=== PATIENT | male | born 1955 | race Caucasian/White ===

== ENCOUNTER 2021-07-28 16:49 | Inpatient (IN) | payer OTHER, MEDICARE, BC, SELFPAY ==
--- NOTE | ~2021-07-28 | FL_ITS ---
EXAMINATION: XR FLUOROSCOPY WITH IMAGES CLINICAL INFORMATION: Choledocholithiasis. COMPARISON: CT scan of the abdomen and pelvis dated 07/28/2021. TECHNIQUE: Fluoroscopy performed by Dr. Ryder. Fluoroscopy time: 348.9 minutes DAP: 184.92 mGy Images: 6 FL/FL guidance in OR FINDINGS/IMPRESSION: Contrast fills the biliary tree with at least 2 filling defects seen on initial images, not seen on subsequent images. Please refer to the procedure report for more detailed findings.
--- NOTE | ~2021-07-28 | CT_ITS ---
EXAMINATION: CT ABDOMEN AND PELVIS WITH CONTRAST CLINICAL INFORMATION: Jaundice COMPARISON: None TECHNIQUE: Multidetector volumetric images were obtained from the superior aspect of the liver through the pubic symphysis following administration 85 mL of Omnipaque 350 intravenous contrast. Sagittal and coronal reformatted images were obtained on the technologist's workstation. Oral contrast: No This CT examination was performed using dose optimization techniques as appropriate, variously including the following: *Automated exposure control *Adjustment of mA and/or kV according to patient size (this includes techniques or standardized protocols for targeted exams where dose is matched to indication/reason for exam; i.e. extremities or head) *Use of iterative reconstruction technique DLP: 681 mGy-cm FINDINGS: LUNG BASES: The visualized lung bases are unremarkable. LIVER, GALLBLADDER, AND BILIARY TREE: The liver is normal in size, shape, and attenuation. There is mild intrahepatic biliary ductal dilatation with dilatation of the common bile duct with maximal dimension of 1.9 cm. In the distal duct, there are 2 obstructing presumed calculi seen the largest more distal measuring 1.0 x 0.8 x 1.2 cm. No stones are seen in the gallbladder. No other calculi are seen. No focal hepatic lesion. The gallbladder itself is unremarkable with no evidence of gallbladder wall thickening, or obvious pericholecystic inflammatory changes. PANCREAS: Unremarkable. SPLEEN: Unremarkable. ADRENAL GLANDS: Unremarkable. KIDNEYS AND URETERS: The kidneys are normal in size, shape, and attenuation. No hydronephrosis, hydroureter, or calculi seen. No perinephric stranding. BLADDER: Unremarkable. GASTROINTESTINAL TRACT: The small and large bowel are unremarkable. The appendix is unremarkable. ABDOMINAL WALL: No significant hernia is appreciated. LYMPH NODES: No retroperitoneal lymphadenopathy. VASCULAR: Atherosclerotic changes present in the infrarenal abdominal aorta and proximal common iliac arteries without aneurysm. PELVIC VISCERA: Unremarkable. OSSEOUS STRUCTURES: Unremarkable. CT/CT abdomen pelvis w con IMPRESSION: Choledocholithiasis with 2 stones in the distal common bile duct, the largest producing occlusion measuring 1.2 cm. Fleischner guidelines were followed.
[2021-07-28 17:05] VITALS: BP 137/75; PULSE 68; RESP 18; TEMP 36.9; O2SAT 98; BMI 32.5
[2021-07-28 17:22] LABS: MANUAL DIFF FLAG NO
[2021-07-28 17:23] LABS: Basophils Percent Auto 0.2 % (0-2); Eosinophils Percent Auto 0.2 % (0-4); Hematocrit 44.9 % (42.0-52.0); Imm Gran Abs Auto 0.03 X10*3/uL (0.00-0.03); Imm Gran Pct Auto 0.2 % (0.0-0.4); Lymphocytes Absolute Auto 0.7 X10*3/uL (1.2-4.9); Lymphocytes Percent Auto 5.5 % (20-40); Mean Corpuscular HGB Conc 35.6 g/dl (31.0-36.0); Mean Corpuscular Hemoglobin 32.7 pg (27.0-33.0); Mean Corpuscular Volume 91.8 fL (80.0-98.0); Mean Platelet Volume 9.7 fL (9.4-12.4); Monocytes Absolute Auto 0.9 X10*3/uL (0.1-1.2); Monocytes Percent Auto 7.6 % (2-11); Neutrophils Absolute Auto 10.7 x10*3/uL (2.0-8.3); Neutrophils Percent Auto 86.3 % (45-73); Platelet Count 268 X10*3/uL (160-400); Red Blood Count 4.89 X10*6/uL (4.60-5.80); Red Cell Distribution Width 12.8 % (11.0-16.0); White Blood Count 12.4 X10*3/uL (4.8-10.8)
[2021-07-28 17:45] LABS: Alanine Aminotransferase 274 U/L (0-40); Albumin Level 4.3 g/dL (3.5-5.0); Alkaline Phosphatase 244 U/L (39-117); Anion Gap 13 (12-20); Aspartate Amino Transferase 202 U/L (5-37); Bilirubin Total 9.1 mg/dL (0.0-1.0); Blood Urea Nitrogen 10 mg/dL (9-16); Calcium 9.8 mg/dL (8.4-10.2); Carbon Dioxide 27 mmol/L (22-29); Chloride 101 mmol/L (96-108); Creatinine Clr Calc Pharmacy 79.4; Estimated Glomerular Filt Rate > 60; Glucose Random 145 mg/dL (60-115); Potassium 4.8 mmol/L (3.3-5.1); Sodium 136 mmol/L (135-145); Total Protein 7.5 g/dL (6.5-8.0)
[2021-07-28 21:06] VITALS: BP 139/83; PULSE 68; RESP 18; O2SAT 98
--- NOTE | 2021-07-28 21:08 | PC.NURSE ---
pt states he has had flu like symptoms for one month followed by itchiness on and off for one week at a time. skin jaundice in color.
[2021-07-28 21:44] LABS: Appearance Urine CLEAR; Color Urine BROWN; Glucose Urine UA 100 MG/DL (NEG); Leukocyte Esterase Urine TRACE (NEG); Nitrite Urine POS (NEG); Specific Gravity - Urine >= 1.030 (1.005-1.025); UACC Culture Trigger YES; Urine Blood NEG (NEG); Urine Ketones 5 MG/DL (NEG); Urine Protein 3+ MG/DL (NEG-TRACE)
--- NOTE | 2021-07-28 21:52 | ED.ABDPAIN ---
HPI - Abdominal Pain General Chief Complaint: Abdominal Pain Stated Complaint: R/O hepatitis, nausea, vomit, ab. urine Time Seen by Provider: 07/28/21 21:37 Source: patient Mode of arrival: ambulatory History of Present Illness HPI narrative: 65-year-old male with cardiac disease, presents with complaints of symptoms starting at the end of June with a severe frontal headache that patient states was not associated with any focal symptoms such as speech/hearing/extremity numbness/tingling/weakness changes but states that it was followed by chills throughout his body and significant dry heaving. Patient states that he felt like his skin was crawling and he was scratching, denies any recent travel outside of the country, denies any unexplained weight loss and denies any abdominal pain/back pain/shortness of breath/chest pain/palpitations. In addition, he denies any diarrhea but states that he had noticed that his urine has progressively become darker and darker. Patient states that these symptoms lasted approximately 10 days then went away for 1 day and then he got another very bad headache with resumption of symptoms skin itching chills, and dry heaving. Patient reports a history of headaches for which he is treated with propanolol and says that this medication did help with the headache that he had been experiencing. He denies any recent medication dosage changes or any new medications. Related Data Home Medications Medication Instructions Recorded Confirmed amlodipine 10 mg tablet 1 tab PO DAILY 07/28/21 07/28/21 apixaban 5 mg tablet (Eliquis) 1 tab PO BID 07/28/21 07/28/21 aspirin 81 mg tablet,delayed 1 tab PO DAILY 07/28/21 07/28/21 release atorvastatin 80 mg tablet 1 tab PO DAILY 07/28/21 07/28/21 propranolol 80 mg capsule,24 1 cap PO BEDTIME 07/28/21 07/28/21 hr,extended release Allergies Allergy/AdvReac Type Severity Reaction Status Date / Time No Known Allergies Allergy Verified 07/28/21 17:06 Review of Systems Review of Systems Pertinent positives and negatives as stated in HPI 10 point review of systems otherwise negative. [facility] Past Medical History Source: nursing notes reviewed Social History Social History Alcohol intake: never Patient Tobacco Use Status: Never used Tobacco Use of substances other than those prescribed or required for medical reasons: No Advance Directives: No Advance Directives Information Provided: No Physical Exam ED Vital Signs: Vital Signs - 24 hr 07/28/21 17:05 07/28/21 21:06 07/28/21 22:00 Temperature 98.4 F 99.0 F Pulse Rate 68 68 70 Respiratory Rate 18 18 20 Blood Pressure 137/75 139/83 132/76 Pulse Oximetry 98 98 97 BMI result Body Mass Index 32.5 VITAL SIGNS: Reviewed. GENERAL: Well developed, well nourished, in no acute distress. HEAD: Normocephalic/atraumatic EYES: PERRLA, EOMI but scleral icterus noted EARS: Ext canals without abnormality OROPHARYNX: no oral lesions noted, posterior pharynx clear LUNGS: Normal breath sounds. No adventitious sounds or accessory muscle use. SpO2<98> CARDIOVASCULAR: Regular rate and rhythm without noted murmurs, no JVD or lower extremity edema. ABDOMEN: Elevated BMI, Soft, non-tender, non-distended with bowel sounds. MUSCULOSKELETAL: No tenderness, deformities, or effusions noted on gross inspection. EXTREMITIES: No cyanosis, clubbing or edema. SKIN: Inspection of the skin reveals no rashes, but jaundiced NEUROLOGIC: Alert and oriented x 4. Strength and sensation to light touch were grossly intact x 4. Course Course Course Narrative: 65-year-old male with history and clinical presentation concerning for possible medication reaction but felt to be more likely mass due to duration without abdominal pain, so choledocholithiasis/cholecystitis thought to be less likely and an absence of diarrhea as a component of the syndrome makes infectious hepatitis a less likely etiology. 2245: Suspect infection Review of all investigations and CT scan significant for choledocholithiasis. Reevaluation(s) Reevaluation #1: Paged GI Time: 22:46 Reevaluation #2: I discussed case with GI, Dr. Ryder, who will do the ERCP when patient has been off of Eliquis for 48 hours. Otherwise, agrees with current plan of care and patient will be admitted to the hospitalist service. Time: 23:08 MDM - Abdominal Pain Lab Data Result diagrams: 07/28/21 17:14 07/28/21 17:14 Labs: Lab Results 07/28/21 07/28/21 07/28/21 Range/Units 17:14 17:14 21:25 WBC 12.4 H (4.8-10.8) X10*3/uL RBC 4.89 (4.60-5.80) X10*6/uL Hgb 16.0 (14.0-18.0) g/dl Hct 44.9 (42.0-52.0) % MCV 91.8 (80.0-98.0) fL MCH 32.7 (27.0-33.0) pg MCHC 35.6 (31.0-36.0) g/dl RDW 12.8 (11.0-16.0) % Plt Count 268 (160-400) X10*3/uL MPV 9.7 (9.4-12.4) fL Immature Gran % (Auto) 0.2 (0.0-0.4) % Neut % (Auto) 86.3 H (45-73) % Lymph % (Auto) 5.5 L (20-40) % [place] % (Auto) 7.6 (2-11) % Eos % (Auto) 0.2 (0-4) % Baso % (Auto) 0.2 (0-2) % Lymph # (Auto) 0.7 L (1.2-4.9) X10*3/uL [place] # (Auto) 0.9 (0.1-1.2) X10*3/uL Eos # (Auto) 0.0 (0.0-0.4) X10*3/uL Baso # (Auto) 0.0 (0.0-0.2) X10*3/uL Abs Immat Gran (auto) 0.03 (0.00-0.03) X10*3/uL Absolute Neuts (auto) 10.7 H (2.0-8.3) x10*3/uL Absolute Nucleated RBC 0.000 (0.0-0.012) X10*3/uL Nucleated RBC % (auto) 0.0 (0.0-0.2) /100WBC Sodium 136 (135-145) mmol/L Potassium 4.8 (3.3-5.1) mmol/L Chloride 101 (96-108) mmol/L Carbon Dioxide 27 (22-29) mmol/L Anion Gap 13 (12-20) BUN 10 (9-16) mg/dL Creatinine 1.08 (0.5-1.4) mg/dL Estim Creat Clear Calc 79.4 Estimated GFR > 60 Random Glucose 145 H (60-115) mg/dL Calcium 9.8 (8.4-10.2) mg/dL Total Bilirubin 9.1 H (0.0-1.0) mg/dL AST 202 H (5-37) U/L ALT 274 H (0-40) U/L Alkaline Phosphatase 244 H (39-117) U/L Total Protein 7.5 (6.5-8.0) g/dL Albumin 4.3 (3.5-5.0) g/dL Lipase 22 (8-78) U/L Urine Color BROWN A Urine Appearance CLEAR Urine pH 5.0 (5.0-8.0) Ur Specific [place] >= 1.030 H (1.005-1.025) Urine Protein 3+ H (NEG-TRACE) MG/DL Urine Glucose (UA) 100 H (NEG) MG/DL Urine Ketones 5 (NEG) MG/DL Urine Blood NEG (NEG) Urine Nitrite POS H (NEG) Ur Leukocyte Esterase TRACE H (NEG) Urine RBC 0-2 (0) /HPF Urine WBC 1-4 (0-4) /HPF Ur Squamous Epith Cells 1+ /LPF Ur Renal Epithelial Cell TRACE /LPF Urine Bacteria TRACE /LPF Hyaline Casts 0-2 /LPF Urine Mucus TRACE /LPF ECG Data Attestation: I personally reviewed and interpreted this ECG as follows: Prior ECG tracings: not available for review Interpretation: NSR, HR-70, no STEMI, ME/QRS/QTC within normal limits. Critical Care Time Critical Care Time Critical Care Time: Yes Total Critical Care Time: 30 Attestation: I personally attest to this time spent taking care of the patient. Discharge Plan Discharge Clinical Impression: Choledocholithiasis, Sepsis Patient Disposition: Admitted As Inpatient Prescriptions: No Action atorvastatin 80 mg tablet 1 tab PO DAILY 0RF aspirin 81 mg tablet,delayed release (DR/EC) 1 tab PO DAILY 0RF amlodipine 10 mg tablet 1 tab PO DAILY 0RF propranolol 80 mg capsule,extended release 24 hr 1 cap PO BEDTIME 0RF Eliquis 5 mg tablet 1 tab PO BID 0RF
[2021-07-28] MEDS: iohexoL 350 MG/ML 100 ML INFUS..BTL IV (21:56)
[2021-07-28 22:00] VITALS: BP 132/76; PULSE 70; RESP 20; TEMP 37.2; O2SAT 97
[2021-07-28 22:15] LABS: Bacteria Urine TRACE /LPF; Hyaline Casts Urine 0-2 /LPF; Mucus Urine TRACE /LPF; RBC Urine 0-2 /HPF (0); Renal Epithelial Cells Urine TRACE /LPF; Squamous Epithelial Cell Urine 1+ /LPF
--- NOTE | 2021-07-28 22:29 | ECG_ITS ---
Test Reason : ABDOMINAL PAIN Blood Pressure : / mmHG Vent. Rate : 070 BPM Atrial Rate : 070 BPM P-R Int : 200 ms QRS Dur : 082 ms QT Int : 412 ms P-R-T Axes : 011 -33 001 degrees QTc Int : 444 ms Normal sinus rhythm Left axis deviation cannot exclude old Inferior infarct , age undetermined Abnormal ECG No previous ECGs available Referred By: Shannon Cantor Electronically Signed By:REJI MESA
[2021-07-28 22:36] LABS: Lipase 22 U/L (8-78)
[2021-07-28 23:29] VITALS: BP 108/57; PULSE 63; RESP 19; TEMP 36.8; O2SAT 97
[2021-07-28 23:35] LABS: Lactic Acid 1.5 mmol/L (0.5-2.0)
--- NOTE | 2021-07-28 23:36 | P.HPHOSP_ITS ---
History of Present Illness Date of Service: 07/28/21 Chief Complaint: dark urine 65-year-old male with a past medical history of hypertension, hyperlipidemia, AFib on Eliquis presented to the hospital with a chief complaint of dark urine for the past few days. Denies any abdominal pain. Patient does report having nausea. Denies any vomiting or diarrhea. Denies any fever chills cough. Denies any recent travel or sick contacts. Patient also reports he has been having generalized itching. Denies any recent changes in his medications. Review of all other systems is negative except mentioned above ER course: Per ER team patient noted a benign examination; urinalysis was abnormal consistent with UTI; also noted to have T bili of 9.1; ALT AST elevated to 200s; lipase negative; patient also had low-grade temperature 99 degrees F; given Zosyn; CT abdomen showed choledocholithiasis. Discussed with Dr. Ryder from Gastroenterology for possible ERCP and admitted to the hospitalist service for further management [facility] Medical History (Updated 08/10/21 @ 00:02 by Lan Hoffman) Atrial fibrillation Choledocholithiasis Hyperlipidemia Hypertension Jaundice Rotator cuff syndrome of both shoulders Sepsis Transaminitis UTI (urinary tract infection) Surgical History (Updated 08/08/21 @ 10:09 by MARY LOU Quarles) History of laparoscopic cholecystectomy (07/31/21) Status post total knee replacement, right Social History Household Members: Significant Other Housing: House Do you presently have visiting nurse or other home services: No Alcohol intake: never Patient Tobacco Use Status: Never used Tobacco service: Yes Current occupational status: retired Living Ind[employer] Groups Allergies Allergy/AdvReac Type Severity Reaction Status Date / Time No Known Allergies Allergy Verified 08/08/21 10:17 Active Medications: Current Medications Hydromorphone HCl (Hydromorphone Hcl 1 Mg/Ml Syringe) 0.5 mg IVPUSH Q4H PRN; Protocol PRN Reason: Pain, Severe (Pain Scale 7-10) Sodium Chloride (Ns) 2,121 mls @ 2,121 mls/hr IV .Q1H STA Stop: 07/29/21 00:11 Ondansetron HCl (Ondansetron Hcl 4 Mg/2 Ml Vial) 4 mg IVPUSH Q8H PRN PRN Reason: Nausea and Vomiting Sodium Chloride (0.9 % Sodium Chloride Flush 3 Ml Syringe) 3 ml IVFLUSH QSHIFT [facility] Home Medications Medication Instructions Recorded Confirmed Last Taken Type amlodipine 10 mg tablet 1 tab PO DAILY 07/28/21 08/08/21 Unknown History apixaban 5 mg tablet (Eliquis) 1 tab PO BID 07/28/21 08/08/21 Unknown History aspirin 81 mg tablet,delayed 1 tab PO DAILY 07/28/21 08/08/21 Unknown History release atorvastatin 80 mg tablet 1 tab PO DAILY 07/28/21 08/08/21 Unknown History propranolol 80 mg capsule,24 1 cap PO BEDTIME 07/28/21 08/08/21 Unknown History hr,extended release Physical Exam Vital Signs and Narrative: Vital Signs: Last Vital Signs Temp 98.2 F 07/28/21 23:29 Pulse 63 07/28/21 23:29 Resp 19 07/28/21 23:29 BP 108/57 L 07/28/21 23:29 Pulse Ox 97 07/28/21 23:29 BMI result Body Mass Index 32.5 Gen: Appears be in no acute distress HEENT: NCAT, Moist mucosa. Sclera are icteric Pulmonary: Vesicular breath sounds, fair air entry CVS: Normal S1-S2 Abdomen: BS+, Soft, Nontender Extremities: Warm well perfused Neuro: Alert and awake. Results Labs CBC and Chem 7: 08/02/21 05:19 08/02/21 05:19 Labs: Laboratory Results - last 24 hr 07/28/21 07/28/21 07/28/21 17:14 17:14 21:25 MCV 91.8 MCH 32.7 MCHC 35.6 RDW 12.8 Plt Count 268 MPV 9.7 Immature Gran % (Auto) 0.2 Neut % (Auto) 86.3 H Lymph % (Auto) 5.5 L [place] % (Auto) 7.6 Eos % (Auto) 0.2 Baso % (Auto) 0.2 Lymph # (Auto) 0.7 L [place] # (Auto) 0.9 Eos # (Auto) 0.0 Baso # (Auto) 0.0 Abs Immat Gran (auto) 0.03 Absolute Neuts (auto) 10.7 H Absolute Nucleated RBC 0.000 Nucleated RBC % (auto) 0.0 Anion Gap 13 Estim Creat Clear Calc 79.4 Estimated GFR > 60 Random Glucose 145 H Lactic Acid Calcium 9.8 Total Bilirubin 9.1 H AST 202 H ALT 274 H Alkaline Phosphatase 244 H Total Protein 7.5 Albumin 4.3 Lipase 22 Urine Color BROWN A Urine Appearance CLEAR Urine pH 5.0 Ur Specific [place] >= 1.030 H Urine Protein 3+ H Urine Glucose (UA) 100 H Urine Ketones 5 Urine Blood NEG Urine Nitrite POS H Ur Leukocyte Esterase TRACE H Urine RBC 0-2 Urine WBC 1-4 Ur Squamous Epith Cells 1+ Ur Renal Epithelial Cell TRACE Urine Bacteria TRACE Hyaline Casts 0-2 Urine Mucus TRACE 07/28/21 23:15 MCV MCH MCHC RDW Plt Count MPV Immature Gran % (Auto) Neut % (Auto) Lymph % (Auto) [place] % (Auto) Eos % (Auto) Baso % (Auto) Lymph # (Auto) [place] # (Auto) Eos # (Auto) Baso # (Auto) Abs Immat Gran (auto) Absolute Neuts (auto) Absolute Nucleated RBC Nucleated RBC % (auto) Anion Gap Estim Creat Clear Calc Estimated GFR Random Glucose Lactic Acid 1.5 Calcium Total Bilirubin AST ALT Alkaline Phosphatase Total Protein Albumin Lipase Urine Color Urine Appearance Urine pH Ur Specific [place] Urine Protein Urine Glucose (UA) Urine Ketones Urine Blood Urine Nitrite Ur Leukocyte Esterase Urine RBC Urine WBC Ur Squamous Epith Cells Ur Renal Epithelial Cell Urine Bacteria Hyaline Casts Urine Mucus Imaging Radiologist's Impressions: Impressions Abdomen/Pelvis CT 07/28/21 22:00 IMPRESSION: Choledocholithiasis with 2 stones in the distal common bile duct, the largest producing occlusion measuring 1.2 cm. Fleischner guidelines were followed. Assessment and Plan (1) Choledocholithiasis: (2) Transaminitis: (3) UTI (urinary tract infection): Plan 65-year-old male with a past medical history of hypertension, hyperlipidemia, AFib on Eliquis presented to the hospital with a chief complaint of dark urin e/icterus noted to have following Transaminitis/choledocholithiasis: Trend liver enzymes Avoid hepatotoxic medications Hold home statin Dr. Ryder was made aware-who recommended admission to Medicine Service for possible ERCP in the morning UTI: Patient had low-grade temperature. Follow up cultures. Currently on Zosyn. History of AFib: Rate controlled. Eliquis on hold for now in anticipation for procedure in the morning. History of hypertension: Patient's blood pressure currently on the soft side. Hold home amlodipine.Continue home propranolol with holding parameters DVT prophylaxis: SCD boots Code status: Full code Quality Stroke Does the patient have a stroke diagnosis?: No VTE Prior VTE?: No VTE Risk Level:: Medical - moderate - high VTE Device Contraindication: Treatment Not Indicated VTE Drug Contraindication: N/A - Med Ordered
[2021-07-28 23:41] LABS: COVID-19 Test Negative (Negative)
[2021-07-28 23:42] LABS: INTERNATIONAL NORM RATIO 1.7 (0.9-1.1); Prothrombin Time 19.9 SEC (9.9-13.0)
[2021-07-28] MEDS: 0.9 % Sodium Chloride 2,121 ML 2121 ML IV (23:46)
[2021-07-28] MEDS: Piperacillin Sodium/Tazobactam 3.375 GM in 0.9 % Sodium Chloride 50 ML IV (23:47)
[2021-07-29 02:00] VITALS: BP 123/65; PULSE 68; RESP 11; TEMP 36.8; O2SAT 98
[2021-07-29] MEDS: diphenhydrAMINE HCL 25 MG TABLET PO (02:33)
[2021-07-29] MEDS: Piperacillin Sodium/Tazobactam 3.375 GM in 0.9 % Sodium Chloride 50 ML IV ×3 (06:36→16:52)
[2021-07-29 06:41] LABS: MANUAL DIFF FLAG NO
[2021-07-29 06:54] LABS: Basophils Percent Auto 0.5 % (0-2); Eosinophils Absolute Auto 0.1 X10*3/uL (0.0-0.4); Eosinophils Percent Auto 2.1 % (0-4); Hematocrit 35.7 % (42.0-52.0); Hemoglobin 12.5 g/dl (14.0-18.0); Imm Gran Abs Auto 0.02 X10*3/uL (0.00-0.03); Imm Gran Pct Auto 0.3 % (0.0-0.4); Lymphocytes Absolute Auto 0.7 X10*3/uL (1.2-4.9); Lymphocytes Percent Auto 10.9 % (20-40); Mean Corpuscular Hemoglobin 32.6 pg (27.0-33.0); Mean Platelet Volume 10.3 fL (9.4-12.4); Monocytes Absolute Auto 0.6 X10*3/uL (0.1-1.2); Monocytes Percent Auto 8.6 % (2-11); Neutrophils Absolute Auto 5.1 x10*3/uL (2.0-8.3); Neutrophils Percent Auto 77.6 % (45-73); Platelet Count 181 X10*3/uL (160-400); Red Blood Count 3.84 X10*6/uL (4.60-5.80); White Blood Count 6.6 X10*3/uL (4.8-10.8)
[2021-07-29 07:04] LABS: Anion Gap 13 (12-20); Blood Urea Nitrogen 9 mg/dL (9-16); Calcium 8.6 mg/dL (8.4-10.2); Carbon Dioxide 21 mmol/L (22-29); Chloride 106 mmol/L (96-108); Creatinine Clr Calc Pharmacy 104.5; Estimated Glomerular Filt Rate > 60; Glucose Random 123 mg/dL (60-115); Potassium 3.9 mmol/L (3.3-5.1); Sodium 136 mmol/L (135-145)
[2021-07-29] MEDS: Atorvastatin Calcium 80 MG TABLET PO (07:44)
[2021-07-29 07:46] VITALS: BP 134/56; PULSE 81; RESP 14; O2SAT 98
[2021-07-29] MEDS: 0.9 % Sodium Chloride Flush 3 ML SYRINGE IVFLUSH ×3 (07:48→19:45)
[2021-07-29 07:59] LABS: Alanine Aminotransferase 173 U/L (0-40); Albumin Level 3.4 g/dL (3.5-5.0); Alkaline Phosphatase 183 U/L (39-117); Aspartate Amino Transferase 110 U/L (5-37); Bilirubin Direct 6.7 mg/dL (0.0-0.5); Bilirubin Total 8.6 mg/dL (0.0-1.0); Total Protein 5.7 g/dL (6.5-8.0)
--- NOTE | 2021-07-29 10:04 | PM.EVENT ---
Event Note Date of Service: 07/29/21 Event Note: GI consult dictated CBD stones with elevated lfts and 3 weeks of intermittent symptoms. Last dose of Eliquis 07/27PM Plan is for ERCP 07/30 after 48+ hrs off OAC to minimize risk of bleeding from sphincterotomy Pt is aware of risks and benefits and agrees to proceed.
--- NOTE | 2021-07-29 10:09 | MHC.SHP ---
Pre-Procedural Eval Section A Date of Service: 07/29/21 The patient is an INPATIENT: Yes Changes since office visit: No Cold of Flu in the past 2 weeks, No New Medical Problems, No Changes in Medication and No Patient answered all questions The History & Physical has been completed within 30 days and I have reviewed it.: Yes Section B Chief Complaint: Choledocholithiasis Allergies: Allergies Allergy/AdvReac Type Severity Reaction Status Date / Time No Known Allergies Allergy Verified 07/28/21 17:06 Plan I have reviewed the history and physical and performed a pertinent physical examination on my patient. No changes have occurred unless specified.
--- NOTE | 2021-07-29 13:15 | PC.NURSE ---
report given to s3
[2021-07-29 16:00] VITALS: BP 133/76; PULSE 62; RESP 19; TEMP 36.6; O2SAT 100
--- NOTE | 2021-07-29 16:08 | P.PNIM_ITS ---
Subjective Subjective Date of Service: 07/29/21 Interval History: F/u on choledocholithiasis--no more abdominal pain but having itchyness Review of Systems ithin, no abdominal pain Physical Exam Vital Signs: Vital Signs: Last Vital Signs Temp 98.3 F 07/29/21 02:00 Pulse 81 07/29/21 07:46 Resp 14 07/29/21 07:46 BP 134/56 L 07/29/21 07:46 Pulse Ox 98 07/29/21 07:46 BMI result Body Mass Index 32.5 Const: Other: General: AO X 3, no acute distress Sclera icteris Resp: CTA bilateral CVS: S1,S2,RRR GI: +BS, NT, no distention Skin: No rash Neuro: motor grossly intact Psych: appropriate affect Objective Data Active Medications Atorvastatin Calcium (Atorvastatin Calcium 80 Mg Tablet) 80 mg PO DAILY [facility] Last Admin: 07/29/21 07:44 Dose: 80 mg Documented by: ELAINE Hydromorphone HCl (Hydromorphone Hcl 1 Mg/Ml Syringe) 0.5 mg IVPUSH Q4H PRN; Protocol PRN Reason: Pain, Severe (Pain Scale 7-10) Piperacillin Sod/Tazobactam (Sod 3.375 gm/ Sodium Chloride) 50 mls @ 100 mls/hr IV Q6H [facility] Last Infusion: 07/29/21 13:46 Dose: 0 mls/hr Documented by: MARIIA Melatonin (Melatonin 3 Mg Tablet) 3 mg PO BEDTIME PRN PRN Reason: Insomnia Ondansetron HCl (Ondansetron Hcl 4 Mg/2 Ml Vial) 4 mg IVPUSH Q8H PRN PRN Reason: Nausea and Vomiting Propranolol HCl (Propranolol Hcl [place] 80 Mg Cap.Sa.24h) 80 mg PO BEDTIME FLAVIO; Protocol Sodium Chloride (0.9 % Sodium Chloride Flush 3 Ml Syringe) 3 ml IVFLUSH QSHIFT [facility] Last Admin: 07/29/21 07:48 Dose: 3 ml Documented by: ELAINE Labs CBC & Chem 7: 07/29/21 06:34 07/29/21 06:34 Labs: Laboratory Results - last 24 hr 07/28/21 07/28/21 07/28/21 17:14 17:14 21:25 MCV 91.8 MCH 32.7 MCHC 35.6 RDW 12.8 Plt Count 268 MPV 9.7 Immature Gran % (Auto) 0.2 Neut % (Auto) 86.3 H Lymph % (Auto) 5.5 L [place] % (Auto) 7.6 Eos % (Auto) 0.2 Baso % (Auto) 0.2 Lymph # (Auto) 0.7 L [place] # (Auto) 0.9 Eos # (Auto) 0.0 Baso # (Auto) 0.0 Abs Immat Gran (auto) 0.03 Absolute Neuts (auto) 10.7 H Absolute Nucleated RBC 0.000 Nucleated RBC % (auto) 0.0 PT INR Anion Gap 13 Estim Creat Clear Calc 79.4 Estimated GFR > 60 Random Glucose 145 H Lactic Acid Calcium 9.8 Total Bilirubin 9.1 H Direct Bilirubin AST 202 H ALT 274 H Alkaline Phosphatase 244 H Total Protein 7.5 Albumin 4.3 Lipase 22 Urine Color BROWN A Urine Appearance CLEAR Urine pH 5.0 Ur Specific [place] >= 1.030 H Urine Protein 3+ H Urine Glucose (UA) 100 H Urine Ketones 5 Urine Blood NEG Urine Nitrite POS H Ur Leukocyte Esterase TRACE H Urine RBC 0-2 Urine WBC 1-4 Ur Squamous Epith Cells 1+ Ur Renal Epithelial Cell TRACE Urine Bacteria TRACE Hyaline Casts 0-2 Urine Mucus TRACE COVID-19 (JEANETH) COVID-19 Spokeable Com 07/28/21 07/28/21 07/28/21 23:15 23:20 23:31 MCV MCH MCHC RDW Plt Count MPV Immature Gran % (Auto) Neut % (Auto) Lymph % (Auto) [place] % (Auto) Eos % (Auto) Baso % (Auto) Lymph # (Auto) [place] # (Auto) Eos # (Auto) Baso # (Auto) Abs Immat Gran (auto) Absolute Neuts (auto) Absolute Nucleated RBC Nucleated RBC % (auto) PT 19.9 H INR 1.7 H Anion Gap Estim Creat Clear Calc Estimated GFR Random Glucose Lactic Acid 1.5 Calcium Total Bilirubin Direct Bilirubin AST ALT Alkaline Phosphatase Total Protein Albumin Lipase Urine Color Urine Appearance Urine pH Ur Specific [place] Urine Protein Urine Glucose (UA) Urine Ketones Urine Blood Urine Nitrite Ur Leukocyte Esterase Urine RBC Urine WBC Ur Squamous Epith Cells Ur Renal Epithelial Cell Urine Bacteria Hyaline Casts Urine Mucus COVID-19 (JEANETH) Negative COVID-19 Clin Com See Note 07/29/21 07/29/21 06:34 06:34 MCV 93.0 MCH 32.6 MCHC 35.0 RDW 13.0 Plt Count 181 D MPV 10.3 Immature Gran % (Auto) 0.3 Neut % (Auto) 77.6 H Lymph % (Auto) 10.9 L [place] % (Auto) 8.6 Eos % (Auto) 2.1 Baso % (Auto) 0.5 Lymph # (Auto) 0.7 L [place] # (Auto) 0.6 Eos # (Auto) 0.1 Baso # (Auto) 0.0 Abs Immat Gran (auto) 0.02 Absolute Neuts (auto) 5.1 Absolute Nucleated RBC 0.000 Nucleated RBC % (auto) 0.0 PT INR Anion Gap 13 Estim Creat Clear Calc 104.5 Estimated GFR > 60 Random Glucose 123 H Lactic Acid Calcium 8.6 D Total Bilirubin 8.6 H Direct Bilirubin 6.7 H AST 110 H ALT 173 H Alkaline Phosphatase 183 H D Total Protein 5.7 L D Albumin 3.4 L D Lipase Urine Color Urine Appearance Urine pH Ur Specific [place] Urine Protein Urine Glucose (UA) Urine Ketones Urine Blood Urine Nitrite Ur Leukocyte Esterase Urine RBC Urine WBC Ur Squamous Epith Cells Ur Renal Epithelial Cell Urine Bacteria Hyaline Casts Urine Mucus COVID-19 (JEANETH) COVID-19 Clin Com Microbiology Microbiology Results: Microbiology 07/28/21 Unknown Urine Culture - Preliminary Urine clean catch - Urine serna top No growth to date. Assessment and Plan (1) Choledocholithiasis: Status: Acute Plan 65-year-old male with a past medical history of hypertension, hyperlipidemia, AFib on Eliquis presented to the hospital with a chief complaint of dark urine/icterus noted to have following Transaminitis/choledocholithiasis: Trend liver enzymes Avoid hepatotoxic medications Hold home statin Dr. Ryder will do ERCP tomorrow Will need surgery consult for eventual CCY UTI:??Patient had low-grade temperature.? Follow up cultures.? Currently on Zosyn History of AFib: Rate controlled.? Eliquis on hold for now in anticipation for procedure in the morning.? History of hypertension:? Patient's blood pressure currently on the soft side.? Hold home amlodipine.Continue home propranolol with holding parameters DVT prophylaxis: SCD boots Code status:? Full code Quality Stroke Does the patient have a stroke diagnosis?: No VTE Prior VTE?: No VTE Risk Level:: Medical - moderate - high VTE Device Contraindication: Treatment Not Indicated VTE Drug Contraindication: N/A - Med Ordered
[2021-07-29] MEDS: diphenhydrAMINE HCL 50 MG/ML VIAL 12.5 MG IVPUSH (16:52)
--- NOTE | 2021-07-29 19:23 | CONS_ITS ---
DATE OF SERVICE: 07/29/2021 REFERRING PHYSICIAN: Linden Kruger MD REASON FOR CONSULTATION: Common bile duct stones. HISTORY OF PRESENT ILLNESS: The patient is a pleasant 65-year-old man who was admitted to the hospital after presenting to the emergency room with complaints of intermittent abdominal pain with chills, dark in urine, and pruritus over the past 3 weeks. He had headache but denies fevers. He was evaluated in the emergency department with laboratory studies, and CT scanning was obtained after liver function tests were noted to be markedly elevated. The CT scan is reviewed, and this is interpreted as showing colon bile duct stones with common bile duct dilation. PAST MEDICAL HISTORY: 1. Migraine headaches. 2. Atrial fibrillation for which he is on Eliquis. 3. Coronary artery disease with history of stent placement. CURRENT MEDICATIONS: Current medication list is reviewed in the chart. ALLERGIES: THERE ARE NONE REPORTED. FAMILY HISTORY: This is reviewed with the patient and is noncontributory. SOCIAL HISTORY: There is no current tobacco, alcohol, or substance abuse. REVIEW OF SYSTEMS: SKIN: No pruritus. HEENT: Negative. CARDIOPULMONARY: No shortness of breath or chest pain. GASTROINTESTINAL: As above. GENITOURINARY: Negative. NEUROPSYCHIATRIC: Negative. PHYSICAL EXAMINATION: GENERAL: Shows a pleasant male, sitting comfortably in bed. VITAL SIGNS: Reviewed in electronic medical record and are stable. He has been afebrile since being started on antibiotics. SKIN: Shows mild icterus. HEENT: Shows mild scleral icterus. NECK: Without lymphadenopathy or thyromegaly. LUNGS: Clear. HEART: Shows regular rate and rhythm. S1, S2. No murmur. ABDOMEN: Soft. There is no tenderness, guarding, or rebound. Bowel sounds are present. No organomegaly is noted. EXTREMITIES: Without edema. LABORATORY DATA: Shows a white blood cell count of 6.6, down from 12.[address] scanning is reviewed. IMPRESSION: Common bile duct stones. I have discussed ERCP with sphincterotomy and stone extraction with the patient. This will be arranged for tomorrow so as to minimize risk from bleeding from sphincterotomy as his last dose of Eliquis was Thursday evening, and this will be 48 hours after that. I have discussed the procedure with him including risks and benefits. He understands these and agrees to proceed. I agree with keeping him on antibiotics to prevent cholangitis. His repeat chemistries have shown slight improvement in his bilirubin down from 9.1 to 8.6 with transaminases also improving to suggesting that his obstruction is intermittent. Thanks for asking me to see him. I will follow him in the hospital with you. MD TARA Aguero/SUNDAY / [phone]
[2021-07-29 19:25] VITALS: BP 134/72; PULSE 68; RESP 18; TEMP 36.8; O2SAT 97
[2021-07-29] MEDS: Propranolol HCL LA 80 MG CAP.SA.24H PO (19:44)
[2021-07-29] MEDS: Phytonadione (Vit K1) 10 MG in 0.9 % Sodium Chloride 50 ML 51 MG IV (19:44)
[2021-07-29 23:41] VITALS: BP 131/65; PULSE 57; RESP 16; TEMP 36.7; O2SAT 95
[2021-07-30] VITALS (14 sets, daily range): BP systolic 102–135; BP diastolic 51–80; PULSE 51–85; RESP 12–20; TEMP 36.2–37.1; O2SAT 95–99
[2021-07-30] MEDS: Piperacillin Sodium/Tazobactam 3.375 GM in 0.9 % Sodium Chloride 50 ML IV ×4 (00:43→16:28)
[2021-07-30 04:51] LABS: INTERNATIONAL NORM RATIO 1.2 (0.9-1.1); Prothrombin Time 13.5 SEC (9.9-13.0)
[2021-07-30 05:11] LABS: Anion Gap 12 (12-20); Blood Urea Nitrogen 8 mg/dL (9-16); Carbon Dioxide 23 mmol/L (22-29); Chloride 106 mmol/L (96-108); Creatinine Clr Calc Pharmacy 103.3; Estimated Glomerular Filt Rate > 60; Glucose Random 118 mg/dL (60-115); Sodium 137 mmol/L (135-145)
[2021-07-30] MEDS: 0.9 % Sodium Chloride Flush 3 ML SYRINGE IVFLUSH (07:49)
[2021-07-30] MEDS: Atorvastatin Calcium 80 MG TABLET PO (07:49)
[2021-07-30 08:24] LABS: Alanine Aminotransferase 139 U/L (0-40); Albumin Level 3.6 g/dL (3.5-5.0); Alkaline Phosphatase 182 U/L (39-117); Aspartate Amino Transferase 87 U/L (5-37); Bilirubin Direct 3.6 mg/dL (0.0-0.5); Total Protein 6.1 g/dL (6.5-8.0)
--- NOTE | 2021-07-30 09:36 | P.BOP_ITS ---
Brief Operative Note Date of Service: 07/30/21 Pre-op diagnosis: gerd,screening Post-op diagnosis: same (gastric and colon polyps) Procedure: EGD, colon Surgeon: Rupert Ryder Anesthesia: MAC Was an C 13 Catapult Operator used for this Procedure?: No Estimated blood loss (mL): 2 Pathology: other (bxs antrum, egj gastric polyps, colon polyps) Condition: stable Disposition: PACU
--- NOTE | 2021-07-30 09:50 | MHC.CM.PN ---
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 Home/no services is the goal for dc and CM has initiated and will follow for dc planning. Patient states that he is, in between PCPs. Patient has received the [employer]am[employer] vax X3.
--- NOTE | 2021-07-30 09:56 | P.PNIM_ITS ---
Subjective Subjective Date of Service: 07/30/21 Interval History: F/u on choledocholithiasis--no more abdominal pain but having itchyness Review of Systems ithin, no abdominal pain Physical Exam Vital Signs: Vital Signs: Last Vital Signs Temp 97.1 F 07/30/21 07:29 Pulse 52 07/30/21 07:29 Resp 18 07/30/21 07:29 BP 135/74 07/30/21 07:29 Pulse Ox 97 07/30/21 07:29 BMI result Body Mass Index 32.5 Const: Other: General: AO X 3, no acute distress Sclera icteris Resp: CTA bilateral CVS: S1,S2,RRR GI: +BS, NT, no distention Skin: No rash Neuro: motor grossly intact Psych: appropriate affect Objective Data Active Medications Atorvastatin Calcium (Atorvastatin Calcium 80 Mg Tablet) 80 mg PO DAILY [facility] Last Admin: 07/30/21 07:49 Dose: 80 mg Documented by: BROOKE Diphenhydramine HCl (Diphenhydramine Hcl 50 Mg/Ml Vial) 12.5 mg IVPUSH Q6H PRN PRN Reason: Itching Last Admin: 07/29/21 16:52 Dose: 12.5 mg Documented by: MARIIA Hydromorphone HCl (Hydromorphone Hcl 1 Mg/Ml Syringe) 0.5 mg IVPUSH Q4H PRN; Protocol PRN Reason: Pain, Severe (Pain Scale 7-10) Piperacillin Sod/Tazobactam (Sod 3.375 gm/ Sodium Chloride) 50 mls @ 100 mls/hr IV Q6H [facility] Last Infusion: 07/30/21 06:41 Dose: 0 mls/hr Documented by: TA Melatonin (Melatonin 3 Mg Tablet) 3 mg PO BEDTIME PRN PRN Reason: Insomnia Ondansetron HCl (Ondansetron Hcl 4 Mg/2 Ml Vial) 4 mg IVPUSH Q8H PRN PRN Reason: Nausea and Vomiting Propranolol HCl (Propranolol Hcl La 80 Mg Cap.Sa.24h) 80 mg PO BEDTIME [facility]; Protocol Last Admin: 07/29/21 19:44 Dose: 80 mg Documented by: TA Sodium Chloride (0.9 % Sodium Chloride Flush 3 Ml Syringe) 3 ml IVFLUSH QSHIFT [facility] Last Admin: 07/30/21 07:49 Dose: 3 ml Documented by: BROOKE Labs CBC & Chem 7: 07/29/21 06:34 07/30/21 04:32 Labs: Laboratory Results - last 24 hr 07/30/21 07/30/21 04:32 04:32 PT 13.5 H INR 1.2 H Anion Gap 12 Estim Creat Clear Calc 103.3 Estimated GFR > 60 Random Glucose 118 H Calcium 9.0 Total Bilirubin 5.0 H Direct Bilirubin 3.6 H AST 87 H ALT 139 H Alkaline Phosphatase 182 H Total Protein 6.1 L Albumin 3.6 Microbiology Microbiology Results: Microbiology 07/28/21 Unknown Urine Culture - Final Urine clean catch - Urine serna top No growth. 07/28/21 23:16 Blood Culture - Preliminary Blood - Venous No growth after 24 hours. 07/28/21 23:15 Blood Culture - Preliminary Blood - Venous No growth after 24 hours. Assessment and Plan (1) Choledocholithiasis: Status: Acute Plan 65-year-old male with a past medical history of hypertension, hyperlipidemia, AFib on Eliquis presented to the hospital with a chief complaint of dark urine/i cterus noted to have following Transaminitis/choledocholithiasis: Trend liver enzymes Avoid hepatotoxic medications Hold home statin Dr. Ryder will do ERCP today Will need surgery consult for eventual CCY, consult surgery UTI:??Culture negative, assymptomatic. Stop Zosyn after ERCP History of AFib: Rate controlled.? Eliquis on hold for now in anticipation for procedure in the morning.? History of hypertension:? Patient's blood pressure currently on the soft side.? Hold home amlodipine.Continue home propranolol with holding parameters DVT prophylaxis: SCD boots Code status:? Full code Quality Stroke Does the patient have a stroke diagnosis?: No VTE Prior VTE?: No VTE Risk Level:: Medical - moderate - high VTE Device Contraindication: Treatment Not Indicated VTE Drug Contraindication: N/A - Med Ordered
--- NOTE | 2021-07-30 12:06 | P.CONGS_ITS ---
History of Present Illness Consult details Consult date: 07/30/21 Reason for consult: abdominal pain Requesting physician: Linden Kruger Narrative: 65-year-old male patient presenting with complaints of abdominal pain the upper abdomen associated with dark colored urine and itchiness which progressed over the previous 3 weeks. He subsequently presented to the emergency department for further evaluation. He was noted to have markedly elevated bilirubin levels with a total bilirubin of 9.1 and elevated transaminases noted on admission. CT of the abdomen and pelvis revealed a normal-appearing liver with mild intrahepatic biliary dilatation and dilatation of the common bile duct up to 1.9 cm. To obstructing calculi are noted at the distal common bile duct measuring 1.0 x 0.8 x 1.2 cm. No stones are seen within the gallbladder. No gallbladder wall thickening or pericholecystic fluid is identified. GI consultation was obtained from Dr. Ryder and arrangements made for ERCP today. He was placed on IV antibiotics as well. Review of Systems Constitutional: Constitutional: Denies chills, Denies fever(s), Denies headac he(s) and Denies poor appetite ENT: Denies dizziness and Denies headache(s) Cardiovascular: Cardiovascular: Denies chest pain, Denies rapid heart rate, Denies palpitations and Denies slow heart rate Respiratory: Respiratory: Denies chest congestion, Denies cough, Denies pain on inspiration and Denies wheezing Gastrointestinal: Gastrointestinal: Reports abdominal pain, Denies bloating, Denies change in stool character, Denies constipation, Denies diarrhea, Denies nausea, Denies vomiting and Denies hematemesis Genitourinary: Comments: Dark urine Musculoskeletal: Musculoskeletal: Denies back pain, Denies arthralgias, Denies joint swelling and Denies numbness Integumentary/Breasts: Skin/Breast: Denies change in pigmentation, Denies erythema and Denies rash Neurologic: Denies dizziness, Denies headache(s) and Denies numbness Psychiatric: Psychiatric: Denies anxiety and Denies depression Endocrine: Endocrine: Denies palpitations Hematologic/Lymphatic: Hematologic/Lymphatic: Denies easy bleeding, Denies easy bruising and Denies lymphadenopathy Allergic/Immunologic: Allergic/Immunologic: Denies wheezing PMFSH Past Medical History Medical History (Updated 07/30/21 @ 12:38 by Ralph Puentes MD) Atrial fibrillation Hyperlipidemia Hypertension Rotator cuff syndrome of both shoulders Surgical History Surgical History (Updated 07/30/21 @ 12:31 by Ralph Puentes MD) Status post total knee replacement, right Social History Social History Household Members: Significant Other Housing: House Do you presently have visiting nurse or other home services: No Alcohol intake: never Patient Tobacco Use Status: Never used Tobacco Use of substances other than those prescribed or required for medical reasons: No Currently Displaying Signs/Symptoms of Drug Intoxication Withdrawal: No Advance Directives: No Advance Directives Information Provided: No Do you have thoughts of harming others: None Do you have a plan to hurt others: No Plan Recently lost weight without trying: No service: Yes Current occupational status: retired [employer] Allergies Allergy/AdvReac Type Severity Reaction Status Date / Time No Known Allergies Allergy Verified 07/28/21 17:06 Active Medications: Current Medications Atorvastatin Calcium (Atorvastatin Calcium 80 Mg Tablet) 80 mg PO DAILY [facility] Last Admin: 07/30/21 07:49 Dose: 80 mg Documented by: Diphenhydramine HCl (Diphenhydramine Hcl 50 Mg/Ml Vial) 12.5 mg IVPUSH Q6H PRN PRN Reason: Itching Last Admin: 07/29/21 16:52 Dose: 12.5 mg Documented by: Hydromorphone HCl (Hydromorphone Hcl 1 Mg/Ml Syringe) 0.5 mg IVPUSH Q4H PRN; Protocol PRN Reason: Pain, Severe (Pain Scale 7-10) Piperacillin Sod/Tazobactam (Sod 3.375 gm/ Sodium Chloride) 50 mls @ 100 mls/hr IV Q6H [facility] Last Admin: 07/30/21 11:42 Dose: 100 mls/hr Documented by: Melatonin (Melatonin 3 Mg Tablet) 3 mg PO BEDTIME PRN PRN Reason: Insomnia Ondansetron HCl (Ondansetron Hcl 4 Mg/2 Ml Vial) 4 mg IVPUSH Q8H PRN PRN Reason: Nausea and Vomiting Propranolol HCl (Propranolol Hcl La 80 Mg Cap.Sa.24h) 80 mg PO BEDTIME [facility]; Protocol Last Admin: 07/29/21 19:44 Dose: 80 mg Documented by: Sodium Chloride (0.9 % Sodium Chloride Flush 3 Ml Syringe) 3 ml IVFLUSH QSHIFT [facility] Last Admin: 07/30/21 07:49 Dose: 3 ml Documented by: Home Medications Medication Instructions Recorded Confirmed Last Taken Type amlodipine 10 mg tablet 1 tab PO DAILY 07/28/21 07/28/21 Unknown History apixaban 5 mg tablet (Eliquis) 1 tab PO BID 07/28/21 07/28/21 Unknown History aspirin 81 mg tablet,delayed 1 tab PO DAILY 07/28/21 07/28/21 Unknown History release atorvastatin 80 mg tablet 1 tab PO DAILY 07/28/21 07/28/21 Unknown History propranolol 80 mg capsule,24 1 cap PO BEDTIME 07/28/21 07/28/21 Unknown History hr,extended release Physical Exam Vital Signs: Vital Signs: Last Vital Signs Temp 97.1 F 07/30/21 11:37 Pulse 52 07/30/21 11:37 Resp 18 07/30/21 11:37 BP 121/69 07/30/21 11:37 Pulse Ox 98 07/30/21 11:37 BMI result Body Mass Index 32.5 Const: General: cooperative, comfortable and well developed Nutritional Appearance: well nourished and overweight Orientation/consciousness: patient oriented x3 Limitations: no limitations HENMT: Head: Yes normocephalic and Yes atraumatic Ears: hearing grossly normal bilaterally Eyes: Sclerae: scleral abnormal (Scleral icterus) EOM: EOMs intact bilaterally Neck: Neck: Yes normal visual inspection Resp: Effort & Inspection: normal respiratory effort, no cough, no respiratory distress and no stridor Cardio: Jugular venous distension: no JVD GI: Inspection: Yes normal to inspection Palpation (GI): Soft to palpation, Tenderness to palpation present (GI) in the epigastrum and at McBurney's point; Negative for Bell's sign negative and with no rebound tenderness, no guarding and not rigid Percussion: Yes normal to percussion Auscultation: normal bowel sounds Skin: General skin exam: dry skin and jaundice Neuro: General: patient oriented x3 and no focal motor deficits Extrem: General: Yes full ROM and Yes no clubbing, cyanosis or edema Psych: Appearance: grossly normal Results Labs Result diagrams: 07/29/21 06:34 07/30/21 04:32 Labs: Abnormal lab results 07/30/21 07/30/21 Range/Units 04:32 04:32 PT 13.5 H (9.9-13.0) SEC INR 1.2 H (0.9-1.1) BUN 8 L (9-16) mg/dL Random Glucose 118 H (60-115) mg/dL Total Bilirubin 5.0 H (0.0-1.0) mg/dL Direct Bilirubin 3.6 H (0.0-0.5) mg/dL AST 87 H (5-37) U/L ALT 139 H (0-40) U/L Alkaline Phosphatase 182 H (39-117) U/L Total Protein 6.1 L (6.5-8.0) g/dL BMP 07/30/21 04:32 Sodium 137 Potassium 4.0 Chloride 106 Carbon Dioxide 23 BUN 8 L Creatinine 0.83 Calcium 9.0 Liver Function 07/30/21 Range/Units 04:32 Total Bilirubin 5.0 H (0.0-1.0) mg/dL Direct Bilirubin 3.6 H (0.0-0.5) mg/dL AST 87 H (5-37) U/L ALT 139 H (0-40) U/L Alkaline Phosphatase 182 H (39-117) U/L Albumin 3.6 (3.5-5.0) g/dL Urine 07/28/21 Range/Units 21:25 Urine Color BROWN A Urine Appearance CLEAR Urine pH 5.0 (5.0-8.0) Ur Specific [place] >= 1.030 H (1.005-1.025) Urine Protein 3+ H (NEG-TRACE) MG/DL Urine Glucose (UA) 100 H (NEG) MG/DL All other labs normal. Assessment and Plan (1) Choledocholithiasis: Status: Acute (2) Jaundice: Status: Acute Plan 65-year-old male patient presenting with abdominal pain in the upper abdomen associated with jaundice and itchiness found to have common bile duct stones by CT of the abdomen and pelvis. Patient is scheduled for ERCP later today by Dr. Ryder. We discussed laparoscopic or possible open cholecystectomy possibly tomorrow and after discussion of the procedure, risks, and alternatives, he consents to the surgery. He will tentatively be added to the OR schedule for tomorrow afternoon pending the ERCP results. Procedures Date of Service Date of Service: 07/30/21
--- NOTE | 2021-07-30 12:18 | PM.CNGS ---
History of Present Illness Consult details Consult date: 07/30/21 Narrative: The patient is a 65-year-old male, who was admitted by the ER 2 nights ago because of abdominal pain, self described fever and chills. he also stated that this urine had been darker in color the past 2-3 weeks. His workup in the ER showed elevated LFTs. He had a CAT scan showing a dilated common bile duct consistent with CBD obstruction He was also noted have gallstones so he was admitted for likely CBD stones. I had actually seen him yesterday that time, he stated that he did not have pain any more. He was comfortable when seen. Review of Systems Constitutional: Constitutional: Reports chills and Reports fever(s) Cardiovascular: Cardiovascular: Denies chest pain, Denies dyspnea and Denies dyspnea on exertion Respiratory: Respiratory: Denies cough, Denies dyspnea and Denies dyspnea on exertion Gastrointestinal: Gastrointestinal: Denies hematochezia and Denies change in bowel habits Genitourinary: Genitourinary: Denies hematuria and Denies difficulty urinating Musculoskeletal: Musculoskeletal: Denies back pain and Denies limited range of motion Neurologic: Denies focal weakness and Denies convulsions Psychiatric: Psychiatric: Denies depression and Denies mood swings PMFSH Past Medical History Medical History Atrial fibrillation Hyperlipidemia Hypertension Social History Social History Household Members: Significant Other Housing: House Do you presently have visiting nurse or other home services: No Alcohol intake: never Patient Tobacco Use Status: Never used Tobacco Use of substances other than those prescribed or required for medical reasons: No Currently Displaying Signs/Symptoms of Drug Intoxication Withdrawal: No Advance Directives: No Advance Directives Information Provided: No Do you have thoughts of harming others: None Do you have a plan to hurt others: No Plan Recently lost weight without trying: No service: Yes Current occupational status: retired Meds Allergies Allergy/AdvReac Type Severity Reaction Status Date / Time No Known Allergies Allergy Verified 07/28/21 17:06 Active Medications: Current Medications Atorvastatin Calcium (Atorvastatin Calcium 80 Mg Tablet) 80 mg PO DAILY [facility] Last Admin: 07/30/21 07:49 Dose: 80 mg Documented by: Diphenhydramine HCl (Diphenhydramine Hcl 50 Mg/Ml Vial) 12.5 mg IVPUSH Q6H PRN PRN Reason: Itching Last Admin: 07/29/21 16:52 Dose: 12.5 mg Documented by: Hydromorphone HCl (Hydromorphone Hcl 1 Mg/Ml Syringe) 0.5 mg IVPUSH Q4H PRN; Protocol PRN Reason: Pain, Severe (Pain Scale 7-10) Piperacillin Sod/Tazobactam (Sod 3.375 gm/ Sodium Chloride) 50 mls @ 100 mls/hr IV Q6H [facility] Last Admin: 07/30/21 11:42 Dose: 100 mls/hr Documented by: Melatonin (Melatonin 3 Mg Tablet) 3 mg PO BEDTIME PRN PRN Reason: Insomnia Ondansetron HCl (Ondansetron Hcl 4 Mg/2 Ml Vial) 4 mg IVPUSH Q8H PRN PRN Reason: Nausea and Vomiting Propranolol HCl (Propranolol Hcl La 80 Mg Cap.Sa.24h) 80 mg PO BEDTIME [facility]; Protocol Last Admin: 07/29/21 19:44 Dose: 80 mg Documented by: Sodium Chloride (0.9 % Sodium Chloride Flush 3 Ml Syringe) 3 ml IVFLUSH QSHIFT [facility] Last Admin: 07/30/21 07:49 Dose: 3 ml Documented by: Home Medications Medication Instructions Recorded Confirmed Last Taken Type amlodipine 10 mg tablet 1 tab PO DAILY 07/28/21 07/28/21 Unknown History apixaban 5 mg tablet (Eliquis) 1 tab PO BID 07/28/21 07/28/21 Unknown History aspirin 81 mg tablet,delayed 1 tab PO DAILY 07/28/21 07/28/21 Unknown History release atorvastatin 80 mg tablet 1 tab PO DAILY 07/28/21 07/28/21 Unknown History propranolol 80 mg capsule,24 1 cap PO BEDTIME 07/28/21 07/28/21 Unknown History hr,extended release Physical Exam Vital Signs: Vital Signs: Last Vital Signs Temp 97.1 F 07/30/21 11:37 Pulse 52 07/30/21 11:37 Resp 18 07/30/21 11:37 BP 121/69 07/30/21 11:37 Pulse Ox 98 07/30/21 11:37 BMI result Body Mass Index 32.5 Const: General: comfortable and no acute distress Orientation/consciousness: patient oriented x3 Neck: Neck: Yes no lymphadenopathy Resp: Auscultation: clear to auscultation bilaterally Cardio: Rhythm: regular rhythm GI: Other: No Bell's sign Palpation (GI): Soft to palpation, nontender and no guarding Neuro: General: patient oriented x3 Results Labs Result diagrams: 07/29/21 06:34 07/30/21 04:32 Labs: Abnormal lab results 07/30/21 07/30/21 Range/Units 04:32 04:32 PT 13.5 H (9.9-13.0) SEC INR 1.2 H (0.9-1.1) BUN 8 L (9-16) mg/dL Random Glucose 118 H (60-115) mg/dL Total Bilirubin 5.0 H (0.0-1.0) mg/dL Direct Bilirubin 3.6 H (0.0-0.5) mg/dL AST 87 H (5-37) U/L ALT 139 H (0-40) U/L Alkaline Phosphatase 182 H (39-117) U/L Total Protein 6.1 L (6.5-8.0) g/dL BMP 07/30/21 04:32 Sodium 137 Potassium 4.0 Chloride 106 Carbon Dioxide 23 BUN 8 L Creatinine 0.83 Calcium 9.0 Liver Function 07/30/21 Range/Units 04:32 Total Bilirubin 5.0 H (0.0-1.0) mg/dL Direct Bilirubin 3.6 H (0.0-0.5) mg/dL AST 87 H (5-37) U/L ALT 139 H (0-40) U/L Alkaline Phosphatase 182 H (39-117) U/L Albumin 3.6 (3.5-5.0) g/dL Urine 07/28/21 Range/Units 21:25 Urine Color BROWN A Urine Appearance CLEAR Urine pH 5.0 (5.0-8.0) Ur Specific [place] >= 1.030 H (1.005-1.025) Urine Protein 3+ H (NEG-TRACE) MG/DL Urine Glucose (UA) 100 H (NEG) MG/DL All other labs normal. Imaging Abdomen CT scan report/results: report reviewed and image reviewed CT scan - pelvis: report reviewed and image reviewed Assessment and Plan (1) Choledocholithiasis: Status: Acute He was admitted for abdominal pain with dated LFTs along with a CT scan imaging showing suggestion of CBD obstruction likely from gallstones. He is to undergo ERCP today. His LFTs have been trending downwards. He actually is a lot more comfortable and denied any pain when seen earlier. We will see how the ERCP goes. In view of his gallstones, I will discuss him in the option of proceeding with laparoscopic cholecystectomy during this admission. He otherwise has a benign exam and does not appear septic.
[2021-07-30] MEDS: Lactated Ringers 1,000 ML 100 ML IVCONT ×2 (12:52→17:07)
--- NOTE | 2021-07-30 12:58 | P.CDIC_ITS ---
CDI Concurrent Query Documentation Clarification: PHYSICIAN'S DOCUMENTATION REQUEST Date of Query: 07/30/21 1259 Patient Name: Justin Bell Admit Date: 07/28/21 Dear Doctor, A review of the medical record indicates additional documentation may be needed. Please review below and update the documentation accordingly. Risk Factors/Clinical Indicators/Treatments WBC 12.4 LA 1.5 Per ED note: Sepsis IV Piperacillin Recognized standard criteria for this condition and other infectious definitions includes: Sepsis Systemic manifestations of infection, with 2 or more SIRS criteria which include: * Fever > 100.4?F or hypothermia < 96.8?F * Leukocytosis ? WBC > 12,000 or leukopenia, WBC < 4,000, or > 10% bands * Tachycardia- > 90 beats/minute * Tachypnea- RR > 20 breaths/minute or PaCO2 < 32mmHg Source: Merck Manual 2013 Documentation should include the known or suspected organism, and the underlying infection, such as UTI or pneumonia Based on the above information and the recognized standard for sepsis, could you please clarify in the Progress Notes if this diagnoses is still accurate and reflective of the patient's condition to ensure quality of the medical record. * Sepsis is/was present and is a clinical diagnosis (please include this additional support in the medical record) * After study (the condition) has been ruled out * Other (please specify) * Unable to determine Use of terms such as suspected, likely, concern for, or probable (associated with a specific diagnosis that is being evaluated, monitored, or treated as if it exists) are acceptable and can be coded in the inpatient setting, when documented at the time of discharge. Thank you, Bibi Logan RN Extension: [phone] Please use your independent medical judgment in providing your response. THIS QUERY IS PART OF THE PERMANENT MEDICAL RECORD
--- NOTE | 2021-07-30 13:27 | HO.ANESPROP2 ---
[facility] Active Problems Active Problems: All Active Problems (Updated 07/30/21 @ 12:38 by Ralph Puentes MD) Jaundice (Acute) On continuous oral anticoagulation (Acute) Atrial fibrillation (Acute) Hypertension (Acute) UTI (urinary tract infection) (Acute) Transaminitis (Acute) Choledocholithiasis (Acute) Sepsis (Acute) Past Medical History Medical History Atrial fibrillation Hyperlipidemia Hypertension Rotator cuff syndrome of both shoulders Functional capacity: independent ambulation Family History Family history of problems with anesthesia: No Surgical History Surgical History Status post total knee replacement, right History of Problems with Anesthesia: No Social History Social History Household Members: Significant Other Housing: House Do you presently have visiting nurse or other home services: No Alcohol intake: never Patient Tobacco Use Status: Never used Tobacco Use of substances other than those prescribed or required for medical reasons: No Currently Displaying Signs/Symptoms of Drug Intoxication Withdrawal: No Are you DNR?: No Advance Directives: No Advance Directives Information Provided: No Do you have thoughts of harming others: None Do you have a plan to hurt others: No Plan Recently lost weight without trying: No Nutrition Risks: No Nutritional Risk service: Yes Current occupational status: retired Meds Allergies Allergy/AdvReac Type Severity Reaction Status Date / Time No Known Allergies Allergy Verified 07/28/21 17:06 Active Medications: Current Medications Atorvastatin Calcium (Atorvastatin Calcium 80 Mg Tablet) 80 mg PO DAILY [facility] Last Admin: 07/30/21 07:49 Dose: 80 mg Documented by: Diphenhydramine HCl (Diphenhydramine Hcl 50 Mg/Ml Vial) 12.5 mg IVPUSH Q6H PRN PRN Reason: Itching Last Admin: 07/29/21 16:52 Dose: 12.5 mg Documented by: Hydromorphone HCl (Hydromorphone Hcl 1 Mg/Ml Syringe) 0.5 mg IVPUSH Q4H PRN; Protocol PRN Reason: Pain, Severe (Pain Scale 7-10) Piperacillin Sod/Tazobactam (Sod 3.375 gm/ Sodium Chloride) 50 mls @ 100 mls/hr IV Q6H [facility] Last Infusion: 07/30/21 12:22 Dose: Infused Documented by: Melatonin (Melatonin 3 Mg Tablet) 3 mg PO BEDTIME PRN PRN Reason: Insomnia Ondansetron HCl (Ondansetron Hcl 4 Mg/2 Ml Vial) 4 mg IVPUSH Q8H PRN PRN Reason: Nausea and Vomiting Propranolol HCl (Propranolol Hcl La 80 Mg Cap.Sa.24h) 80 mg PO BEDTIME [facility]; Protocol Last Admin: 07/29/21 19:44 Dose: 80 mg Documented by: Sodium Chloride (0.9 % Sodium Chloride Flush 3 Ml Syringe) 3 ml IVFLUSH QSHIFT [facility] Last Admin: 07/30/21 07:49 Dose: 3 ml Documented by: Home Medications Medication Instructions Recorded Confirmed Last Taken Type amlodipine 10 mg tablet 1 tab PO DAILY 07/28/21 07/28/21 Unknown History apixaban 5 mg tablet (Eliquis) 1 tab PO BID 07/28/21 07/28/21 Unknown History aspirin 81 mg tablet,delayed 1 tab PO DAILY 07/28/21 07/28/21 Unknown History release atorvastatin 80 mg tablet 1 tab PO DAILY 07/28/21 07/28/21 Unknown History propranolol 80 mg capsule,24 1 cap PO BEDTIME 07/28/21 07/28/21 Unknown History hr,extended release Exam Exam Date and Time: July 30, 2021 1327 Height,Weight and Vital Signs: Height 5 ft 9 in Weight 99.79 kg Last Vital Signs Temp 97.3 F 07/30/21 12:48 Pulse 52 07/30/21 12:48 Resp 16 07/30/21 12:48 BP 133/80 07/30/21 12:48 Pulse Ox 98 07/30/21 12:48 Pertinent Lab Results Pertinent Lab Results: Laboratory Tests 07/28/21 07/28/21 07/28/21 17:14 17:14 21:25 WBC 12.4 H RBC 4.89 Hgb 16.0 Hct 44.9 MCV 91.8 MCH 32.7 MCHC 35.6 RDW 12.8 Plt Count 268 MPV 9.7 Immature Gran % (Auto) 0.2 Neut % (Auto) 86.3 H Lymph % (Auto) 5.5 L [place] % (Auto) 7.6 Eos % (Auto) 0.2 Baso % (Auto) 0.2 Lymph # (Auto) 0.7 L [place] # (Auto) 0.9 Eos # (Auto) 0.0 Baso # (Auto) 0.0 Abs Immat Gran (auto) 0.03 Absolute Neuts (auto) 10.7 H Absolute Nucleated RBC 0.000 Nucleated RBC % (auto) 0.0 PT INR Sodium 136 Potassium 4.8 Chloride 101 Carbon Dioxide 27 Anion Gap 13 BUN 10 Creatinine 1.08 Estim Creat Clear Calc 79.4 Estimated GFR > 60 Random Glucose 145 H Lactic Acid Calcium 9.8 Total Bilirubin 9.1 H Direct Bilirubin AST 202 H ALT 274 H Alkaline Phosphatase 244 H Total Protein 7.5 Albumin 4.3 Lipase 22 Urine Color BROWN A Urine Appearance CLEAR Urine pH 5.0 Ur Specific [place] >= 1.030 H Urine Protein 3+ H Urine Glucose (UA) 100 H Urine Ketones 5 Urine Blood NEG Urine Nitrite POS H Ur Leukocyte Esterase TRACE H Urine RBC 0-2 Urine WBC 1-4 Ur Squamous Epith Cells 1+ Ur Renal Epithelial Cell TRACE Urine Bacteria TRACE Hyaline Casts 0-2 Urine Mucus TRACE COVID-19 (JEANETH) COVID-19 [employer] 07/28/21 07/28/21 07/28/21 23:15 23:20 23:31 WBC RBC Hgb Hct MCV MCH MCHC RDW Plt Count MPV Immature Gran % (Auto) Neut % (Auto) Lymph % (Auto) [place] % (Auto) Eos % (Auto) Baso % (Auto) Lymph # (Auto) [place] # (Auto) Eos # (Auto) Baso # (Auto) Abs Immat Gran (auto) Absolute Neuts (auto) Absolute Nucleated RBC Nucleated RBC % (auto) PT 19.9 H INR 1.7 H Sodium Potassium Chloride Carbon Dioxide Anion Gap BUN Creatinine Estim Creat Clear Calc Estimated GFR Random Glucose Lactic Acid 1.5 Calcium Total Bilirubin Direct Bilirubin AST ALT Alkaline Phosphatase Total Protein Albumin Lipase Urine Color Urine Appearance Urine pH Ur Specific [place] Urine Protein Urine Glucose (UA) Urine Ketones Urine Blood Urine Nitrite Ur Leukocyte Esterase Urine RBC Urine WBC Ur Squamous Epith Cells Ur Renal Epithelial Cell Urine Bacteria Hyaline Casts Urine Mucus COVID-19 (JEANETH) Negative COVID-19 [employer] Com See Note 07/29/21 07/29/21 07/30/21 06:34 06:34 04:32 WBC 6.6 RBC 3.84 L D Hgb 12.5 L D Hct 35.7 L D MCV 93.0 MCH 32.6 MCHC 35.0 RDW 13.0 Plt Count 181 D MPV 10.3 Immature Gran % (Auto) 0.3 Neut % (Auto) 77.6 H Lymph % (Auto) 10.9 L [place] % (Auto) 8.6 Eos % (Auto) 2.1 Baso % (Auto) 0.5 Lymph # (Auto) 0.7 L [place] # (Auto) 0.6 Eos # (Auto) 0.1 Baso # (Auto) 0.0 Abs Immat Gran (auto) 0.02 Absolute Neuts (auto) 5.1 Absolute Nucleated RBC 0.000 Nucleated RBC % (auto) 0.0 PT INR Sodium 136 137 Potassium 3.9 4.0 Chloride 106 106 Carbon Dioxide 21 L 23 Anion Gap 13 12 BUN 9 8 L Creatinine 0.82 0.83 Estim Creat Clear Calc 104.5 103.3 Estimated GFR > 60 > 60 Random Glucose 123 H 118 H Lactic Acid Calcium 8.6 D 9.0 Total Bilirubin 8.6 H 5.0 H Direct Bilirubin 6.7 H 3.6 H AST 110 H 87 H ALT 173 H 139 H Alkaline Phosphatase 183 H D 182 H Total Protein 5.7 L D 6.1 L Albumin 3.4 L D 3.6 Lipase Urine Color Urine Appearance Urine pH Ur Specific Armstrong Urine Protein Urine Glucose (UA) Urine Ketones Urine Blood Urine Nitrite Ur Leukocyte Esterase Urine RBC Urine WBC Ur Squamous Epith Cells Ur Renal Epithelial Cell Urine Bacteria Hyaline Casts Urine Mucus COVID-19 (JEANETH) COVID-19 Clin Com 07/30/21 04:32 WBC RBC Hgb Hct MCV MCH MCHC RDW Plt Count MPV Immature Gran % (Auto) Neut % (Auto) Lymph % (Auto) [place] % (Auto) Eos % (Auto) Baso % (Auto) Lymph # (Auto) [place] # (Auto) Eos # (Auto) Baso # (Auto) Abs Immat Gran (auto) Absolute Neuts (auto) Absolute Nucleated RBC Nucleated RBC % (auto) PT 13.5 H INR 1.2 H Sodium Potassium Chloride Carbon Dioxide Anion Gap BUN Creatinine Estim Creat Clear Calc Estimated GFR Random Glucose Lactic Acid Calcium Total Bilirubin Direct Bilirubin AST ALT Alkaline Phosphatase Total Protein Albumin Lipase Urine Color Urine Appearance Urine pH Ur Specific Armstrong Urine Protein Urine Glucose (UA) Urine Ketones Urine Blood Urine Nitrite Ur Leukocyte Esterase Urine RBC Urine WBC Ur Squamous Epith Cells Ur Renal Epithelial Cell Urine Bacteria Hyaline Casts Urine Mucus COVID-19 (JEANETH) COVID-19 Clin Com Airway Mallampati Class: III TM Dist: >3cm Neck ROM: Full Heart: RRR Lungs: Rosalina Assessment and Plan Final Anesthetic Review Family History of Problems with Anesthesia: No History of Problems with Anesthesia: No NPO: Yes ASA Class: III and Emergency Final Preanesthetic Review: No Changes in Pt Med Stat, Meds/Allgs Chart Reviewed and Consent Obtained/Reviewed Patient Risk: Intermediate Procedure Risk: Intermediate Anesthetic Plan Anesthetic Plan: GA Disposition: Standard PACU
--- NOTE | 2021-07-30 15:29 | PM.OP ---
Brief Operative Note Date of Service: 07/30/21 Pre-op diagnosis: cbd stones Post-op diagnosis: same Procedure: ERCP/sphincterotomy and stone extraction Surgeon: Rupert Ryder Anesthesia: GETA Was an Vascular Technician used for this Procedure?: No Estimated blood loss (mL): 2 Pathology: none sent Condition: stable
--- NOTE | 2021-07-30 15:31 | PM.EVENT ---
Event Note Date of Service: 07/30/21 Event Note: ERCP dictated 2 large cbd stones removed after sphincterotomy cystic duct appears patent good drainage of clear yellow bile post procedure rec lo fat diet tonight, then npo for ccy 07/31
--- NOTE | 2021-07-30 15:55 | OP_ITS ---
SURGEON: Rupert Ryder MD INDICATIONS: Common bile duct stones. PREOPERATIVE DIAGNOSIS: POSTOPERATIVE DIAGNOSIS: PROCEDURE PERFORMED: Endoscopic retrograde cholangiopancreatography with sphincterotomy and stone extraction. ESTIMATED BLOOD LOSS: COMPLICATIONS: ANESTHESIA: ASSISTANTS: SPECIMENS: MEDICATIONS: General anesthesia. DESCRIPTION OF PROCEDURE: History and physical were performed. The risks and benefits of the procedure were explained to the patient. An informed consent was obtained. The patient was placed in the prone position with a wedge under the right shoulder. The Olympus therapeutic duodenoscope was introduced into the esophagus, stomach, and duodenum. Examination was performed. The scope was removed. He tolerated the procedure well and was taken to recovery area in stable condition. FINDINGS: ENDOSCOPY: Limited examination. The esophagus, stomach, and duodenum were within normal limits. There was a small periampullary diverticulum. The major papilla appeared normal and drainage of clear yellow bile was noted from the papillary orifice. The bile duct was cannulated with a guidewire passed through a sphincterotome and injection of dye showed 2 filling defects consistent with the findings noted on CT scanning. The bile duct was dilated to approximately 9-10 mm. A sphincterotomy was performed to approximately 10 mm with no immediate complications. Next, multiple balloons up to 15 mm were used to extract 2 large common bile duct stones. Occlusion cholangiography at the termination of the procedure showed no further filling defects and there was excellent drainage of clear yellow bile. The cystic duct did appear to fill. Intrahepatic ducts appeared normal. No pancreatogram was attempted or obtained. IMPRESSION: Common bile duct stones. RECOMMENDATION: 1. Advanced diet. 2. Follow clinically. 3. Consideration to cholecystectomy for prevention of further common duct stone formation. MD TARA Aguero/SUNDAY / [phone]
[2021-07-30] MEDS: Propranolol HCL LA 80 MG CAP.SA.24H PO (20:09)
[2021-07-30] MEDS: diphenhydrAMINE HCL 50 MG/ML VIAL 12.5 MG IVPUSH (20:13)
[2021-07-31] VITALS (11 sets, daily range): BP systolic 104–173; BP diastolic 47–73; PULSE 50–57; RESP 14–18; TEMP 35.5–36.7; O2SAT 95–99
[2021-07-31] MEDS: 0.9 % Sodium Chloride Flush 3 ML SYRINGE IVFLUSH ×2 (00:05→19:47)
[2021-07-31 05:49] LABS: Hematocrit 36.3 % (42.0-52.0); Hemoglobin 12.6 g/dl (14.0-18.0); Mean Corpuscular HGB Conc 34.7 g/dl (31.0-36.0); Mean Corpuscular Hemoglobin 32.4 pg (27.0-33.0); Mean Corpuscular Volume 93.3 fL (80.0-98.0); Mean Platelet Volume 10.2 fL (9.4-12.4); Platelet Count 172 X10*3/uL (160-400); Red Blood Count 3.89 X10*6/uL (4.60-5.80); White Blood Count 5.4 X10*3/uL (4.8-10.8)
[2021-07-31] MEDS: Piperacillin Sodium/Tazobactam 3.375 GM in 0.9 % Sodium Chloride 50 ML IV ×5 (06:01→23:56)
--- NOTE | 2021-07-31 07:43 | HO.POSTANES ---
Post Anesthesia Evaluation Post Anesthesia Evaluation Vital Signs: Vital Signs Temp Pulse Resp BP Pulse Ox 07/31/21 07:38 96 F L 50 18 122/58 L 96 07/31/21 03:29 96.7 F L 50 16 133/57 L 96 07/30/21 23:45 97.1 F 55 16 116/59 L 97 Anesthesia: Monitored Mental Status: Awake Pain Control: Satisfactory Nausea/Vomiting: None Hydration: Adequate Anesthesia-Related Issues: No Anes. Related Issues
[2021-07-31] MEDS: Atorvastatin Calcium 80 MG TABLET PO (08:52)
[2021-07-31] MEDS: Throat Lozenge, Medicated LOZENGE 1 LOZENGE MUCOUS MEM ×2 (08:58)
--- NOTE | 2021-07-31 11:27 | HO.PM.IMPN ---
Subjective Subjective Date of Service: 07/31/21 Review of Systems F/u on choledocholithiasis No abdominal pain, nausea or vomiting Physical Exam Vital Signs: Vital Signs: Last Vital Signs Temp 97 F 07/31/21 11:01 Pulse 52 07/31/21 11:01 Resp 18 07/31/21 11:01 BP 117/54 L 07/31/21 11:01 Pulse Ox 98 07/31/21 11:01 BMI result Body Mass Index 32.5 Appearing in no acute distress lung sounds are clear to auscultation heart regular rate rhythm, clear S1, S2 positive bowel sounds, abdomen is soft, nontender neuro patient is alert x3, no focal deficits Objective Data Active Medications Atorvastatin Calcium (Atorvastatin Calcium 80 Mg Tablet) 80 mg PO DAILY [facility] Last Admin: 07/31/21 08:52 Dose: 80 mg Documented by: BROOKE Benzocaine (Throat Lozenge, Medicated Lozenge) 1 lozenge MUCOUS MEM Q2H PRN PRN Reason: Sore Throat Last Admin: 07/31/21 08:58 Dose: 1 lozenge Documented by: BROOKE Diphenhydramine HCl (Diphenhydramine Hcl 50 Mg/Ml Vial) 12.5 mg IVPUSH Q6H PRN PRN Reason: Itching Last Admin: 07/30/21 20:13 Dose: 12.5 mg Documented by: TA Fentanyl (Fentanyl Citrate/Pf 100 Mcg/2 Ml Vial) 25 mcg IVPUSH Q5M PRN; Protocol PRN Reason: Pain, Moderate (Pain Scale 4-6 Hydromorphone HCl (Hydromorphone Hcl 1 Mg/Ml Syringe) 0.5 mg IVPUSH Q4H PRN; Protocol PRN Reason: Pain, Severe (Pain Scale 7-10) Piperacillin Sod/Tazobactam (Sod 3.375 gm/ Sodium Chloride) 50 mls @ 100 mls/hr IV Q6H [facility] Last Admin: 07/31/21 11:26 Dose: 100 mls/hr Documented by: BROOKE Lactated Ringer's (Lr) 1,000 mls @ 100 mls/hr IVCONT .Q10H [facility] Last Admin: 07/31/21 11:26 Dose: Not Given Documented by: BROOKE Non-Admin Reason: IV Running Melatonin (Melatonin 3 Mg Tablet) 3 mg PO BEDTIME PRN PRN Reason: Insomnia Ondansetron HCl (Ondansetron Hcl 4 Mg/2 Ml Vial) 4 mg IVPUSH Q8H PRN PRN Reason: Nausea and Vomiting Ondansetron HCl (Ondansetron Hcl 4 Mg/2 Ml Vial) 4 mg IVPUSH ONCE PRN PRN Reason: Nausea and Vomiting Oxycodone HCl (Oxycodone Hcl Immed Release 5 Mg Tablet) 5 mg PO ONCE PRN PRN Reason: Pain, Severe (Pain Scale 7-10) Propranolol HCl (Propranolol Hcl La 80 Mg Cap.Sa.24h) 80 mg PO BEDTIME [facility]; Protocol Last Admin: 07/30/21 20:09 Dose: 80 mg Documented by: TA Sodium Chloride (0.9 % Sodium Chloride Flush 3 Ml Syringe) 3 ml IVFLUSH QSHIFT [facility] Last Admin: 07/31/21 08:51 Dose: Not Given Documented by: BROOKE Non-Admin Reason: IV Running Labs CBC & Chem 7: 07/31/21 05:18 07/30/21 04:32 Labs: Laboratory Results - last 24 hr 07/31/21 05:18 MCV 93.3 MCH 32.4 MCHC 34.7 RDW 13.0 Plt Count 172 MPV 10.2 Absolute Nucleated RBC 0.000 Nucleated RBC % (auto) 0.0 Microbiology Microbiology Results: Microbiology 07/28/21 23:16 Blood Culture - Preliminary Blood - Venous No growth after 48 hours. 07/28/21 23:15 Blood Culture - Preliminary Blood - Venous No growth after 48 hours. 07/28/21 Unknown Urine Culture - Final Urine clean catch - Urine serna top No growth. Assessment and Plan (1) Choledocholithiasis: Status: Acute Plan 65-year-old male with a past medical history of hypertension, hyperlipidemia, AFib on Eliquis presented to the hospital with a chief complaint of dark urine Transaminitis/choledocholithiasis LFTS trending down ERCP: 2 large cbd stones removed after sphincterotomy cystic duct appears patent, good drainage of clear yellow bile post procedure CCY today UTI Culture negative assymptomatic. Stop Zosyn History of AFib Rate controlled.? Eliquis on hold for now in anticipation for procedure in the morning.? History of hypertension Patient's blood pressure currently on the soft side.? Hold home amlodipine. Continue home propranolol with holding parameters DVT prophylaxis: SCD boots Code status:? Full code Attending Dr. Byers Quality Stroke Does the patient have a stroke diagnosis?: No VTE Prior VTE?: No VTE Risk Level:: Medical - moderate - high VTE Device Contraindication: Treatment Not Indicated VTE Drug Contraindication: N/A - Med Ordered
--- NOTE | 2021-07-31 11:38 | MHC.CM.PN ---
PER MD ROUNDS, PATIENT IS ANTICIPATED TO RETURN HOME TOMORROW (08/01/21) PLAN IS CURRENTLY NO SERVICES NEEDED.
--- NOTE | 2021-07-31 14:52 | HO.ANESPROP2 ---
HPI - Anesthesia Eval Consult details Narrative: 65 M for laproscopic cholecytectomy CAD s/p stent in 2018 Was on Eliquis and asprin , it is being held by the primary team for the procedure . [facility] Active Problems Active Problems: All Active Problems (Updated 07/30/21 @ 12:38 by Ralph Puentes MD) Jaundice (Acute) On continuous oral anticoagulation (Acute) Atrial fibrillation (Acute) Hypertension (Acute) UTI (urinary tract infection) (Acute) Transaminitis (Acute) Choledocholithiasis (Acute) Sepsis (Acute) Past Medical History Medical History Atrial fibrillation Hyperlipidemia Hypertension Rotator cuff syndrome of both shoulders Functional capacity: independent ambulation Family History Family history of problems with anesthesia: No Surgical History Surgical History Status post total knee replacement, right History of Problems with Anesthesia: No Social History Social History Household Members: Significant Other Housing: House Do you presently have visiting nurse or other home services: No Alcohol intake: never Patient Tobacco Use Status: Never used Tobacco service: Yes Current occupational status: retired [employer] Allergies Allergy/AdvReac Type Severity Reaction Status Date / Time No Known Allergies Allergy Verified 07/28/21 17:06 Active Medications: Current Medications Atorvastatin Calcium (Atorvastatin Calcium 80 Mg Tablet) 80 mg PO DAILY [facility] Last Admin: 07/31/21 08:52 Dose: 80 mg Documented by: Benzocaine (Throat Lozenge, Medicated Lozenge) 1 lozenge MUCOUS MEM Q2H PRN PRN Reason: Sore Throat Last Admin: 07/31/21 08:58 Dose: 1 lozenge Documented by: Diphenhydramine HCl (Diphenhydramine Hcl 50 Mg/Ml Vial) 12.5 mg IVPUSH Q6H PRN PRN Reason: Itching Last Admin: 07/30/21 20:13 Dose: 12.5 mg Documented by: Fentanyl (Fentanyl Citrate/Pf 100 Mcg/2 Ml Vial) 25 mcg IVPUSH Q5M PRN; Protocol PRN Reason: Pain, Moderate (Pain Scale 4-6 Hydromorphone HCl (Hydromorphone Hcl 1 Mg/Ml Syringe) 0.5 mg IVPUSH Q4H PRN; Protocol PRN Reason: Pain, Severe (Pain Scale 7-10) Piperacillin Sod/Tazobactam (Sod 3.375 gm/ Sodium Chloride) 50 mls @ 100 mls/hr IV Q6H [facility] Last Infusion: 07/31/21 12:05 Dose: Infused Documented by: Lactated Ringer's (Lr) 1,000 mls @ 100 mls/hr IVCONT .Q10H [facility] Last Admin: 07/31/21 11:26 Dose: Not Given Documented by: Melatonin (Melatonin 3 Mg Tablet) 3 mg PO BEDTIME PRN PRN Reason: Insomnia Ondansetron HCl (Ondansetron Hcl 4 Mg/2 Ml Vial) 4 mg IVPUSH Q8H PRN PRN Reason: Nausea and Vomiting Ondansetron HCl (Ondansetron Hcl 4 Mg/2 Ml Vial) 4 mg IVPUSH ONCE PRN PRN Reason: Nausea and Vomiting Oxycodone HCl (Oxycodone Hcl Immed Release 5 Mg Tablet) 5 mg PO ONCE PRN PRN Reason: Pain, Severe (Pain Scale 7-10) Propranolol HCl (Propranolol Hcl La 80 Mg Cap.Sa.24h) 80 mg PO BEDTIME [facility]; Protocol Last Admin: 07/30/21 20:09 Dose: 80 mg Documented by: Sodium Chloride (0.9 % Sodium Chloride Flush 3 Ml Syringe) 3 ml IVFLUSH QSHIFT [facility] Last Admin: 07/31/21 08:51 Dose: Not Given Documented by: Home Medications Medication Instructions Recorded Confirmed Last Taken Type amlodipine 10 mg tablet 1 tab PO DAILY 07/28/21 07/28/21 Unknown History apixaban 5 mg tablet (Eliquis) 1 tab PO BID 07/28/21 07/28/21 Unknown History aspirin 81 mg tablet,delayed 1 tab PO DAILY 07/28/21 07/28/21 Unknown History release atorvastatin 80 mg tablet 1 tab PO DAILY 07/28/21 07/28/21 Unknown History propranolol 80 mg capsule,24 1 cap PO BEDTIME 07/28/21 07/28/21 Unknown History hr,extended release Exam Exam Date and Time: July 31, 2021 1452 Height,Weight and Vital Signs: Height 5 ft 9 in Weight 99.79 kg Last Vital Signs Temp 97 F 02/23/22 11:01 Pulse 52 07/31/21 11:01 Resp 18 07/31/21 11:01 BP 117/54 L 07/31/21 11:01 Pulse Ox 98 07/31/21 11:01 Pertinent Lab Results Pertinent Lab Results: Laboratory Tests 07/28/21 07/28/21 07/28/21 17:14 17:14 21:25 WBC 12.4 H RBC 4.89 Hgb 16.0 Hct 44.9 MCV 91.8 MCH 32.7 MCHC 35.6 RDW 12.8 Plt Count 268 MPV 9.7 Immature Gran % (Auto) 0.2 Neut % (Auto) 86.3 H Lymph % (Auto) 5.5 L [place] % (Auto) 7.6 Eos % (Auto) 0.2 Baso % (Auto) 0.2 Lymph # (Auto) 0.7 L [place] # (Auto) 0.9 Eos # (Auto) 0.0 Baso # (Auto) 0.0 Abs Immat Gran (auto) 0.03 Absolute Neuts (auto) 10.7 H Absolute Nucleated RBC 0.000 Nucleated RBC % (auto) 0.0 PT INR Sodium 136 Potassium 4.8 Chloride 101 Carbon Dioxide 27 Anion Gap 13 BUN 10 Creatinine 1.08 Estim Creat Clear Calc 79.4 Estimated GFR > 60 Random Glucose 145 H Lactic Acid Calcium 9.8 Total Bilirubin 9.1 H Direct Bilirubin AST 202 H ALT 274 H Alkaline Phosphatase 244 H Total Protein 7.5 Albumin 4.3 Lipase 22 Urine Color BROWN A Urine Appearance CLEAR Urine pH 5.0 Ur Specific [place] >= 1.030 H Urine Protein 3+ H Urine Glucose (UA) 100 H Urine Ketones 5 Urine Blood NEG Urine Nitrite POS H Ur Leukocyte Esterase TRACE H Urine RBC 0-2 Urine WBC 1-4 Ur Squamous Epith Cells 1+ Ur Renal Epithelial Cell TRACE Urine Bacteria TRACE Hyaline Casts 0-2 Urine Mucus TRACE COVID-19 (JEANETH) COVID-19 Clin Com 07/28/21 07/28/21 07/28/21 23:15 23:20 23:31 WBC RBC Hgb Hct MCV MCH MCHC RDW Plt Count MPV Immature Gran % (Auto) Neut % (Auto) Lymph % (Auto) [place] % (Auto) Eos % (Auto) Baso % (Auto) Lymph # (Auto) [place] # (Auto) Eos # (Auto) Baso # (Auto) Abs Immat Gran (auto) Absolute Neuts (auto) Absolute Nucleated RBC Nucleated RBC % (auto) PT 19.9 H INR 1.7 H Sodium Potassium Chloride Carbon Dioxide Anion Gap BUN Creatinine Estim Creat Clear Calc Estimated GFR Random Glucose Lactic Acid 1.5 Calcium Total Bilirubin Direct Bilirubin AST ALT Alkaline Phosphatase Total Protein Albumin Lipase Urine Color Urine Appearance Urine pH Ur Specific [place] Urine Protein Urine Glucose (UA) Urine Ketones Urine Blood Urine Nitrite Ur Leukocyte Esterase Urine RBC Urine WBC Ur Squamous Epith Cells Ur Renal Epithelial Cell Urine Bacteria Hyaline Casts Urine Mucus COVID-19 (JEANETH) Negative COVID-19 Clin Com See Note 07/29/21 07/29/21 07/30/21 06:34 06:34 04:32 WBC 6.6 RBC 3.84 L D Hgb 12.5 L D Hct 35.7 L D MCV 93.0 MCH 32.6 MCHC 35.0 RDW 13.0 Plt Count 181 D MPV 10.3 Immature Gran % (Auto) 0.3 Neut % (Auto) 77.6 H Lymph % (Auto) 10.9 L [place] % (Auto) 8.6 Eos % (Auto) 2.1 Baso % (Auto) 0.5 Lymph # (Auto) 0.7 L [place] # (Auto) 0.6 Eos # (Auto) 0.1 Baso # (Auto) 0.0 Abs Immat Gran (auto) 0.02 Absolute Neuts (auto) 5.1 Absolute Nucleated RBC 0.000 Nucleated RBC % (auto) 0.0 PT INR Sodium 136 137 Potassium 3.9 4.0 Chloride 106 106 Carbon Dioxide 21 L 23 Anion Gap 13 12 BUN 9 8 L Creatinine 0.82 0.83 Estim Creat Clear Calc 104.5 103.3 Estimated GFR > 60 > 60 Random Glucose 123 H 118 H Lactic Acid Calcium 8.6 D 9.0 Total Bilirubin 8.6 H 5.0 H Direct Bilirubin 6.7 H 3.6 H AST 110 H 87 H ALT 173 H 139 H Alkaline Phosphatase 183 H D 182 H Total Protein 5.7 L D 6.1 L Albumin 3.4 L D 3.6 Lipase Urine Color Urine Appearance Urine pH Ur Specific [place] Urine Protein Urine Glucose (UA) Urine Ketones Urine Blood Urine Nitrite Ur Leukocyte Esterase Urine RBC Urine WBC Ur Squamous Epith Cells Ur Renal Epithelial Cell Urine Bacteria Hyaline Casts Urine Mucus COVID-19 (JEANETH) COVID-19 Clin Com 07/30/21 07/31/21 04:32 05:18 WBC 5.4 RBC 3.89 L Hgb 12.6 L Hct 36.3 L MCV 93.3 MCH 32.4 MCHC 34.7 RDW 13.0 Plt Count 172 MPV 10.2 Immature Gran % (Auto) Neut % (Auto) Lymph % (Auto) [place] % (Auto) Eos % (Auto) Baso % (Auto) Lymph # (Auto) [place] # (Auto) Eos # (Auto) Baso # (Auto) Abs Immat Gran (auto) Absolute Neuts (auto) Absolute Nucleated RBC 0.000 Nucleated RBC % (auto) 0.0 PT 13.5 H INR 1.2 H Sodium Potassium Chloride Carbon Dioxide Anion Gap BUN Creatinine Estim Creat Clear Calc Estimated GFR Random Glucose Lactic Acid Calcium Total Bilirubin Direct Bilirubin AST ALT Alkaline Phosphatase Total Protein Albumin Lipase Urine Color Urine Appearance Urine pH Ur Specific [place] Urine Protein Urine Glucose (UA) Urine Ketones Urine Blood Urine Nitrite Ur Leukocyte Esterase Urine RBC Urine WBC Ur Squamous Epith Cells Ur Renal Epithelial Cell Urine Bacteria Hyaline Casts Urine Mucus COVID-19 (JEANETH) COVID-19 Clin Com Airway Mallampati Class: III TM Dist: >3cm Neck ROM: Full Denture: Upper Loose/Missing/Broken Teeth: Yes Heart: irregular Lungs: bl breath sounds Assessment and Plan Assessment Anesthesia Assessment: Anesthesia Plan Discussed and Chart Reviewed Final Anesthetic Review Family History of Problems with Anesthesia: No History of Problems with Anesthesia: No NPO: Yes ASA Class: III Final Preanesthetic Review: Meds/Allgs Chart Reviewed, Consent Obtained/Reviewed and Anes Risks/Benef Reviewed Patient Risk: High Procedure Risk: Intermediate Anesthetic Plan Anesthetic Plan: GA Disposition: Inp. Admit - Standard Bed
[2021-07-31] MEDS: cefoTEtan disodium 2 GM in 0.9 % Sodium Chloride 50 ML IV (15:34)
--- NOTE | 2021-07-31 17:11 | P.OP_ITS ---
Operative Note Operative Note Date of Service: 07/31/21 Narrative: Preoperative diagnosis: Choledocholithiasis, cholelithiasis Postoperative diagnosis: Same Procedure: Laparoscopic cholecystectomy Surgeon: Ralph Puentes MD Licensed Nuclear Control Room Operator: MJ Viveros Anesthesia: General endotracheal Indications for procedure: 65-year-old male patient found to have abdominal pain in the right upper quadrant associated with jaundice. Patient was found to have a markedly dilated common bile duct with gallstones within the common bile duct. Patient subsequently underwent ERCP with removal of the common bile duct stones. He presents today for laparoscopic cholecystectomy. Operative findings: Moderately inflamed gallbladder with multiple gallstones within the gallbladder body. Specimen: gallbladder Estimated blood loss: 15 mL Complications: none Drain: Meir-Alexandre 7 connected to bulb suction Procedure details: Patient was brought to the OR and placed in a supine position. After administering general anesthesia the patient's abdomen was prepped with ChloraPrep and draped in a sterile fashion. Local anesthesia consisting of 0.5% Sensorcaine without epinephrine was infiltrated in a periumbilical region. A 5 mm incision was made above the umbilicus in a transverse fashion. The Veress needle was then inserted while elevating abdominal cavity with towel clips. After positive drop test the abdomen was insufflated to a pressure of 15 mm of mercury. The Veress needle was then removed and a 5 mm trocar inserted. The camera was inserted in the abdomen explored. A 12 mm trocar was then placed in the epigastrium and two 5 mm trocars placed in the right upper quadrant. The patient was placed in reverse Trendelenburg positioning and rotated to the left. The gallbladder was grasped with the fundus and retracted cephalad. The infundibulum was then grasped and retracted away from the liver bed. The Dolphin dissected was then used to dissect the peritoneum off the infundibulum to reveal the junction with the cystic duct. Cystic artery was noted slightly medial and posterior to the cystic duct. After obtaining a critical view the cystic duct was doubly clipped and divided. The cystic artery was then doubly clipped and divided. The gallbladder was then dissected off the liver bed using electrocautery with an L hook. Hemostasis was assured all times using the electrocautery. When the gallbladder is completely dissected off the liver bed was placed in an Endo-Catch bag and brought out through the epigastric incision. The gallbladder was sent to pathology for further examination. The abdomen was then re-examined. The liver bed was irrigated and suctioned dry. the liver edge did have some minor bleeding which was cauterized with electrocautery. Surgicel was also applied to the liver edge surface. A Meir-Alexandre drain was placed at the liver edge and connected to a bulb suction ; this was brought out through the lateral trocar site. The ROSETTE drain was your to the skin using a Nylon suture. CO2 was then evacuated and all trocars removed. Fascia was closed at the epigastric incision using a [id number] 0 Polysorb suture. Skin was closed in all incisions using a subcuticular 4 0 Polysorb suture. Sterile dressings consisting of Steri-Strips, 2 x 2 gauze, and Tegaderm were then applied. The patient tolerated the procedure well. Sponge instrument and needle counts reported as correct. The patient was transferred to PACU in stable condition.
[2021-07-31] MEDS: HYDROmorphone HCl 0.5 MG/0.5 ML SYRINGE 0.25 MG IVPUSH ×2 (17:12→17:17)
[2021-07-31] MEDS: HYDROmorphone HCl 1 MG/ML SYRINGE 0.5 MG IVPUSH (18:18)
[2021-07-31] MEDS: diphenhydrAMINE HCL 50 MG/ML VIAL 12.5 MG IVPUSH (19:46)
[2021-07-31] MEDS: Propranolol HCL LA 80 MG CAP.SA.24H PO (19:46)
[2021-07-31] MEDS: Dextrose 5 % and Lactated Ring 1,000 ML 125 ML IVCONT (19:47)
[2021-07-31 20:48] LABS: Alanine Aminotransferase 115 U/L (0-40); Albumin Level 3.7 g/dL (3.5-5.0); Alkaline Phosphatase 182 U/L (39-117); Aspartate Amino Transferase 95 U/L (5-37); Bilirubin Direct 2.3 mg/dL (0.0-0.5); Bilirubin Total 3.2 mg/dL (0.0-1.0); Total Protein 6.5 g/dL (6.5-8.0)
[2021-07-31] MEDS: oxyCODONE HCl Immed Release 5 MG TABLET PO (21:59)
[2021-08-01] MEDS: HYDROmorphone HCl 1 MG/ML SYRINGE 0.5 MG IVPUSH ×2 (00:12→06:16)
[2021-08-01] MEDS: oxyCODONE HCl Immed Release 5 MG TABLET PO ×5 (03:10→20:08)
[2021-08-01] MEDS: diphenhydrAMINE HCL 50 MG/ML VIAL 12.5 MG IVPUSH ×3 (03:10→20:08)
[2021-08-01] MEDS: Dextrose 5 % and Lactated Ring 1,000 ML 125 ML IVCONT (03:48)
[2021-08-01 04:00] VITALS: BP 118/64; PULSE 50; RESP 16; TEMP 36.2; O2SAT 99
[2021-08-01 05:46] LABS: MANUAL DIFF FLAG NO
[2021-08-01] MEDS: Piperacillin Sodium/Tazobactam 3.375 GM in 0.9 % Sodium Chloride 50 ML IV (05:59)
[2021-08-01 06:01] LABS: Basophils Percent Auto 0.1 % (0-2); Eosinophils Percent Auto 0.1 % (0-4); Hematocrit 34.2 % (42.0-52.0); Hemoglobin 11.9 g/dl (14.0-18.0); Imm Gran Abs Auto 0.03 X10*3/uL (0.00-0.03); Imm Gran Pct Auto 0.4 % (0.0-0.4); Lymphocytes Percent Auto 12.2 % (20-40); Mean Corpuscular HGB Conc 34.8 g/dl (31.0-36.0); Mean Corpuscular Hemoglobin 32.2 pg (27.0-33.0); Mean Corpuscular Volume 92.7 fL (80.0-98.0); Mean Platelet Volume 9.8 fL (9.4-12.4); Monocytes Percent Auto 11.3 % (2-11); Neutrophils Absolute Auto 6.5 x10*3/uL (2.0-8.3); Neutrophils Percent Auto 75.9 % (45-73); Platelet Count 174 X10*3/uL (160-400); Red Blood Count 3.69 X10*6/uL (4.60-5.80); Red Cell Distribution Width 12.5 % (11.0-16.0); White Blood Count 8.5 X10*3/uL (4.8-10.8)
[2021-08-01 06:17] LABS: Anion Gap 14 (12-20); Blood Urea Nitrogen 8 mg/dL (9-16); Calcium 8.9 mg/dL (8.4-10.2); Carbon Dioxide 24 mmol/L (22-29); Chloride 102 mmol/L (96-108); Creatinine Clr Calc Pharmacy 89.3; Estimated Glomerular Filt Rate > 60; Glucose Random 164 mg/dL (60-115); Potassium 4.5 mmol/L (3.3-5.1); Sodium 135 mmol/L (135-145)
--- NOTE | 2021-08-01 07:34 | HO.POSTANES ---
Post Anesthesia Evaluation Post Anesthesia Evaluation Vital Signs: Vital Signs Temp Pulse Resp BP Pulse Ox 08/01/21 04:00 97.2 F 50 16 118/64 99 07/31/21 23:33 97.5 F 55 16 104/47 L 97 07/31/21 20:00 97.0 F 57 18 132/63 98 Anesthesia: General Endotracheal-GETA Mental Status: Awake Pain Control: Satisfactory Nausea/Vomiting: None Hydration: Adequate Anesthesia-Related Issues: No Anes. Related Issues
[2021-08-01] MEDS: Atorvastatin Calcium 80 MG TABLET PO (07:48)
[2021-08-01] MEDS: 0.9 % Sodium Chloride Flush 3 ML SYRINGE IVFLUSH ×3 (07:48→20:09)
--- NOTE | 2021-08-01 07:57 | PM.PNGS ---
Subjective Subjective Date of Service: 08/01/21 Interval history: Patient reports right upper quadrant abdominal pain near they Meir-Alexandre drain. He was able to tolerate a regular diet without nausea or vomiting. Physical Exam Vital Signs: Vital Signs: Last Vital Signs Temp 97.2 F 08/01/21 04:00 Pulse 50 08/01/21 04:00 Resp 16 08/01/21 04:00 BP 118/64 08/01/21 04:00 Pulse Ox 99 08/01/21 04:00 BMI result Body Mass Index 32.5 Const: Other: Awake and alert, no acute distress Resp: Other: Breathing comfortably on room air, no shortness of breath GI: Other: Incisions clean, some bloody discharge from drain site and epigastric incision otherwise abdomen is soft and nondistended. ROSETTE drain with serosanguineous discharge. No bile noted. Skin: Other: Warm, dry, no rash Extrem: Other: No cyanosis or edema. Objective Data Active Medications Atorvastatin Calcium (Atorvastatin Calcium 80 Mg Tablet) 80 mg PO DAILY [facility] Last Admin: 08/01/21 07:48 Dose: 80 mg Documented by: KAROL Benzocaine (Throat Lozenge, Medicated Lozenge) 1 lozenge MUCOUS MEM Q2H PRN PRN Reason: Sore Throat Last Admin: 07/31/21 08:58 Dose: 1 lozenge Documented by: BROOKE Diphenhydramine HCl (Diphenhydramine Hcl 50 Mg/Ml Vial) 12.5 mg IVPUSH Q6H PRN PRN Reason: Itching Last Admin: 08/01/21 03:10 Dose: 12.5 mg Documented by: KAROL Hydromorphone HCl (Hydromorphone Hcl 1 Mg/Ml Syringe) 0.5 mg IVPUSH Q4H PRN; Protocol PRN Reason: Pain, Severe (Pain Scale 7-10) Last Admin: 08/01/21 06:16 Dose: 0.5 mg Documented by: KAROL Piperacillin Sod/Tazobactam (Sod 3.375 gm/ Sodium Chloride) 50 mls @ 100 mls/hr IV Q6H [facility] Last Infusion: 08/01/21 06:45 Dose: 0 mls/hr Documented by: KAROL Dextrose/Lactated Ringer's (D5lr) 1,000 mls @ 125 mls/hr IVCONT .Q8H [facility] Last Admin: 08/01/21 03:48 Dose: 125 mls/hr Documented by: KAROL Melatonin (Melatonin 3 Mg Tablet) 3 mg PO BEDTIME PRN PRN Reason: Insomnia Ondansetron HCl (Ondansetron Hcl 4 Mg/2 Ml Vial) 4 mg IVPUSH Q8H PRN PRN Reason: Nausea and Vomiting Oxycodone HCl (Oxycodone Hcl Immed Release 5 Mg Tablet) 5 mg PO Q4H PRN PRN Reason: Pain, Moderate (Pain Scale 4-6 Last Admin: 08/01/21 07:55 Dose: 5 mg Documented by: KAROL Propranolol HCl (Propranolol Hcl La 80 Mg Cap.Sa.24h) 80 mg PO BEDTIME [facility]; Protocol Last Admin: 07/31/21 19:46 Dose: 80 mg Documented by: KAROL Sodium Chloride (0.9 % Sodium Chloride Flush 3 Ml Syringe) 3 ml IVFLUSH QSHIFT [facility] Last Admin: 08/01/21 07:48 Dose: 3 ml Documented by: KAROL Labs CBC & Chem 7: 08/01/21 05:20 08/01/21 05:20 Labs: Laboratory Results - last 24 hr 07/31/21 08/01/21 08/01/21 20:19 05:20 05:20 MCV 92.7 MCH 32.2 MCHC 34.8 RDW 12.5 Plt Count 174 MPV 9.8 Immature Gran % (Auto) 0.4 Neut % (Auto) 75.9 H Lymph % (Auto) 12.2 L [place] % (Auto) 11.3 H Eos % (Auto) 0.1 Baso % (Auto) 0.1 Lymph # (Auto) 1.0 L [place] # (Auto) 1.0 Eos # (Auto) 0.0 Baso # (Auto) 0.0 Abs Immat Gran (auto) 0.03 Absolute Neuts (auto) 6.5 Absolute Nucleated RBC 0.000 Nucleated RBC % (auto) 0.0 Anion Gap 14 Estim Creat Clear Calc 89.3 Estimated GFR > 60 Random Glucose 164 H D Calcium 8.9 Total Bilirubin 3.2 H Direct Bilirubin 2.3 H AST 95 H ALT 115 H Alkaline Phosphatase 182 H Total Protein 6.5 Albumin 3.7 Procedures Date of Service Date of Service: 08/01/21 Progress Note: A&P Assessment and plan (1) Jaundice: Status: Acute (2) Choledocholithiasis: Status: Acute Plan 65-year-old male patient with recent history of jaundice found to have common bile duct stones. He underwent ERCP, papillotomy and removal of common bile duct stone. He is now postop day 1 status post laparoscopic cholecystectomy. He tolerated the procedure well and is tolerating p.o. without nausea or vomiting. ROSETTE is producing serosanguineous fluid. Patient should be able to start his Eliquis this evening. May be of to remove the ROSETTE drain later today output remains low. Fall Risk Details Current Medications: Current Medications Atorvastatin Calcium (Atorvastatin Calcium 80 Mg Tablet) 80 mg PO DAILY [facility] Last Admin: 08/01/21 07:48 Dose: 80 mg Documented by: Benzocaine (Throat Lozenge, Medicated Lozenge) 1 lozenge MUCOUS MEM Q2H PRN PRN Reason: Sore Throat Last Admin: 07/31/21 08:58 Dose: 1 lozenge Documented by: Diphenhydramine HCl (Diphenhydramine Hcl 50 Mg/Ml Vial) 12.5 mg IVPUSH Q6H PRN PRN Reason: Itching Last Admin: 08/01/21 03:10 Dose: 12.5 mg Documented by: Hydromorphone HCl (Hydromorphone Hcl 1 Mg/Ml Syringe) 0.5 mg IVPUSH Q4H PRN; Protocol PRN Reason: Pain, Severe (Pain Scale 7-10) Last Admin: 08/01/21 06:16 Dose: 0.5 mg Documented by: Piperacillin Sod/Tazobactam (Sod 3.375 gm/ Sodium Chloride) 50 mls @ 100 mls/hr IV Q6H [facility] Last Infusion: 08/01/21 06:45 Dose: Infused Documented by: Dextrose/Lactated Ringer's (D5lr) 1,000 mls @ 125 mls/hr IVCONT .Q8H [facility] Last Admin: 08/01/21 03:48 Dose: 125 mls/hr Documented by: Melatonin (Melatonin 3 Mg Tablet) 3 mg PO BEDTIME PRN PRN Reason: Insomnia Ondansetron HCl (Ondansetron Hcl 4 Mg/2 Ml Vial) 4 mg IVPUSH Q8H PRN PRN Reason: Nausea and Vomiting Oxycodone HCl (Oxycodone Hcl Immed Release 5 Mg Tablet) 5 mg PO Q4H PRN PRN Reason: Pain, Moderate (Pain Scale 4-6 Last Admin: 08/01/21 07:55 Dose: 5 mg Documented by: Propranolol HCl (Propranolol Hcl La 80 Mg Cap.Sa.24h) 80 mg PO BEDTIME [facility]; Protocol Last Admin: 07/31/21 19:46 Dose: 80 mg Documented by: Sodium Chloride (0.9 % Sodium Chloride Flush 3 Ml Syringe) [facility] Last Admin: 08/01/21 07:48 Dose: 3 ml Documented by: Time Spent With Patient Time: Total time spent is greater than 50% in coordination of care (as documented) at patient's floor/unit and/or counseling patient: Time with patient: 15 - 24 minutes Quality Stroke Does the patient have a stroke diagnosis?: No VTE Prior VTE?: No VTE Risk Level:: Medical - moderate - high VTE Device Contraindication: Treatment Not Indicated VTE Drug Contraindication: N/A - Med Ordered
[2021-08-01 07:58] VITALS: BP 102/53; PULSE 50; RESP 18; TEMP 36.1; O2SAT 96
[2021-08-01 12:00] VITALS: BP 130/60; PULSE 51; RESP 17; TEMP 36; O2SAT 97
--- NOTE | 2021-08-01 14:46 | MHC.CM.PN ---
NEW PLAN. PATIENT STILL WITH DRAIN. WILL DC HOME TOMORROW WITH NO NEED FOR SERVICES
--- NOTE | 2021-08-01 15:23 | HO.PM.IMPN ---
Subjective Subjective Date of Service: 08/01/21 <JUSTIN Mcdowell - Last Filed: 08/01/21 15:32> 08/02/21 <Kaela Horner MD - Last Filed: 08/02/21 15:57> Interval History: seen and examined this morning overall feeling better still having some right sided abdominal pain tolerating regular diet no nausea or vomiting <JUSTIN Mcdowell - Last Filed: 08/01/21 15:32> Review of Systems Review of Systems: Yes all other systems are reviewed and are negative <JUSTIN Mcdowell - Last Filed: 08/01/21 15:32> Cardiovascular Cardiovascular: Denies palpitations and Denies dyspnea <JUSTIN Mcdowell - Last Filed: 08/01/21 15:32> Respiratory Respiratory: Denies dyspnea <JUSTIN Mcdowell - Last Filed: 08/01/21 15:32> Gastrointestinal Gastrointestinal: Reports abdominal pain, Denies nausea and Denies vomiting <JUSTIN Mcdowell - Last Filed: 08/01/21 15:32> Endocrine Endocrine: Denies palpitations <JUSTIN Mcdowell - Last Filed: 08/01/21 15:32> Physical Exam Vital Signs: Vital Signs: Last Vital Signs Temp 96.8 F 08/01/21 12:00 Pulse 51 08/01/21 12:00 Resp 17 08/01/21 12:00 BP 130/60 08/01/21 12:00 Pulse Ox 97 08/01/21 12:00 BMI result Body Mass Index 32.5 <JUSTIN Mcdowell - Last Filed: 08/01/21 15:32> Const: General: cooperative, comfortable, alert and awake <JUSTIN Mcdowell - Last Filed: 08/01/21 15:32> Nutritional Appearance: overweight <JUSTIN Mcdowell - Last Filed: 08/01/21 15:32> Resp: Effort & Inspection: normal respiratory effort and able to speak in complete sentences <JUSTIN Mcdowell Last Filed: 08/01/21 15:32> Cardio: Rate: regular rate <JUSTIN Mcdowell - Last Filed: 08/01/21 15:32> Heart sounds: S1 normal heart sound present and S2 normal heart sound present <JUSTIN Mcdowell - Last Filed: 08/01/21 15:32> GI: Other: abdomen soft, mild tenderness over incision site; ROSETTE drain with serosanguineous drainage <JUSTIN Mcdowell - Last Filed: 08/01/21 15:32> Extrem: Other: Moving all 4 extremities spontaneous <JUSTIN Mcdowell - Last Filed: 08/01/21 15:32> Objective Data Active Medications Atorvastatin Calcium (Atorvastatin Calcium 80 Mg Tablet) 80 mg PO DAILY FLAVIO Last Admin: 08/01/21 07:48 Dose: 80 mg Documented by: KAROL Benzocaine (Throat Lozenge, Medicated Lozenge) 1 lozenge MUCOUS MEM Q2H PRN PRN Reason: Sore Throat Last Admin: 07/31/21 08:58 Dose: 1 lozenge Documented by: BROOKE Diphenhydramine HCl (Diphenhydramine Hcl 50 Mg/Ml Vial) 12.5 mg IVPUSH Q6H PRN PRN Reason: Itching Last Admin: 08/01/21 12:09 Dose: 12.5 mg Documented by: BROOKE Hydromorphone HCl (Hydromorphone Hcl 1 Mg/Ml Syringe) 0.5 mg IVPUSH Q4H PRN; Protocol PRN Reason: Pain, Severe (Pain Scale 7-10) Last Admin: 08/01/21 06:16 Dose: 0.5 mg Documented by: KAROL Melatonin (Melatonin 3 Mg Tablet) 3 mg PO BEDTIME PRN PRN Reason: Insomnia Ondansetron HCl (Ondansetron Hcl 4 Mg/2 Ml Vial) 4 mg IVPUSH Q8H PRN PRN Reason: Nausea and Vomiting Oxycodone HCl (Oxycodone Hcl Immed Release 5 Mg Tablet) 5 mg PO Q4H PRN PRN Reason: Pain, Moderate (Pain Scale 4-6 Last Admin: 08/01/21 12:08 Dose: 5 mg Documented by: BROOKE Propranolol HCl (Propranolol Hcl La 80 Mg Cap.Sa.24h) 80 mg PO BEDTIME FLAVIO; Protocol Last Admin: 07/31/21 19:46 Dose: 80 mg Documented by: KAROL Sodium Chloride (0.9 % Sodium Chloride Flush 3 Ml Syringe) 3 ml IVFLUSH [facility] Last Admin: 08/01/21 07:48 Dose: 3 ml Documented by: KAROL <JUSTIN Mcdowell - Last Filed: 08/01/21 15:32> Labs CBC & Chem 7: : 08/02/21 05:19 08/02/21 05:19 <JUSTIN Mcdowell - Last Filed: 08/01/21 15:32> Labs: Laboratory Results - last 24 hr 07/31/21 08/01/21 08/01/21 20:19 05:20 05:20 MCV 92.7 MCH 32.2 MCHC 34.8 RDW 12.5 Plt Count 174 MPV 9.8 Immature Gran % (Auto) 0.4 Neut % (Auto) 75.9 H Lymph % (Auto) 12.2 L [place] % (Auto) 11.3 H Eos % (Auto) 0.1 Baso % (Auto) 0.1 Lymph # (Auto) 1.0 L [place] # (Auto) 1.0 Eos # (Auto) 0.0 Baso # (Auto) 0.0 Abs Immat Gran (auto) 0.03 Absolute Neuts (auto) 6.5 Absolute Nucleated RBC 0.000 Nucleated RBC % (auto) 0.0 Anion Gap 14 Estim Creat Clear Calc 89.3 Estimated GFR > 60 Random Glucose 164 H D Calcium 8.9 Total Bilirubin 3.2 H Direct Bilirubin 2.3 H AST 95 H ALT 115 H Alkaline Phosphatase 182 H Total Protein 6.5 Albumin 3.7 <JUSTIN Mcdowell - Last Filed: 08/01/21 15:32> Assessment and Plan (1) Choledocholithiasis: Status: Acute <JUSTIN Mcdowell - Last Filed: 08/01/21 15:32> Plan 65-year-old male with a past medical history of hypertension, hyperlipidemia, AFib on Eliquis presented to the hospital with a chief complaint of dark urine choledocholithiasis LFTS trending down s/p ERCP 07/30 with 2 large cbd stones removed after sphincterotomy s/p CCY 07/31 for prevention further common duct stone formation with ROSETTE drain placement Blood cultures negative to date -Pain control -trend LFTs UTI Culture negative assymptomatic. Stop Zosyn History of AFib Rate controlled.? will resume Eliquis this evening History of hypertension Patient's blood pressure currently on the soft side.? Hold home amlodipine. Continue home propranolol with holding parameters DVT prophylaxis: SCD boots Code status:? Full code Attending Dr. Horner <JUSTIN Mcdowell - Last Filed: 08/01/21 15:32> Quality Stroke Does the patient have a stroke diagnosis?: No <JUSTIN Mcdowell - Last Filed: 08/01/21 15:32> VTE Prior VTE?: No <JUSTIN Mcdowell - Last Filed: 08/01/21 15:32> VTE Risk Level:: Medical - moderate - high <JUSTIN Mcdowell - Last Filed: 08/01/21 15:32> VTE Device Contraindication: Treatment Not Indicated <JUSTIN Mcdowell - Last Filed: 08/01/21 15:32> VTE Drug Contraindication: N/A - Med Ordered <JUSTIN Mcdowell - Last Filed: 08/01/21 15:32>
[2021-08-01 15:43] VITALS: BP 137/65; PULSE 54; RESP 18; TEMP 36.2; O2SAT 98
[2021-08-01 19:29] VITALS: BP 121/61; PULSE 58; RESP 16; TEMP 36.5; O2SAT 96
[2021-08-01] MEDS: Melatonin 3 MG TABLET PO (20:08)
[2021-08-01] MEDS: Propranolol HCL LA 80 MG CAP.SA.24H PO (20:08)
[2021-08-01] MEDS: Apixaban 5 MG TABLET PO (20:09)
[2021-08-01 23:45] VITALS: BP 124/70; PULSE 50; RESP 16; TEMP 36.5; O2SAT 97
[2021-08-02 03:47] VITALS: BP 133/63; PULSE 51; RESP 14; TEMP 36.1; O2SAT 96
[2021-08-02 05:51] LABS: Hematocrit 33.4 % (42.0-52.0); Hemoglobin 11.6 g/dl (14.0-18.0); Mean Corpuscular HGB Conc 34.7 g/dl (31.0-36.0); Mean Corpuscular Hemoglobin 32.3 pg (27.0-33.0); Mean Platelet Volume 10.1 fL (9.4-12.4); Platelet Count 160 X10*3/uL (160-400); Red Blood Count 3.59 X10*6/uL (4.60-5.80); Red Cell Distribution Width 12.8 % (11.0-16.0); White Blood Count 7.4 X10*3/uL (4.8-10.8)
[2021-08-02 06:15] LABS: Alanine Aminotransferase 89 U/L (0-40); Albumin Level 3.4 g/dL (3.5-5.0); Alkaline Phosphatase 129 U/L (39-117); Anion Gap 13 (12-20); Aspartate Amino Transferase 74 U/L (5-37); Bilirubin Direct 1.3 mg/dL (0.0-0.5); Blood Urea Nitrogen 9 mg/dL (9-16); Calcium 8.8 mg/dL (8.4-10.2); Carbon Dioxide 27 mmol/L (22-29); Chloride 103 mmol/L (96-108); Creatinine Clr Calc Pharmacy 102.1; Estimated Glomerular Filt Rate > 60; Glucose Random 100 mg/dL (60-115); Sodium 139 mmol/L (135-145); Total Protein 5.9 g/dL (6.5-8.0)
[2021-08-02 07:51] VITALS: BP 145/67; PULSE 50; RESP 15; TEMP 36.2; O2SAT 97
[2021-08-02] MEDS: Atorvastatin Calcium 80 MG TABLET PO (09:04)
[2021-08-02] MEDS: Apixaban 5 MG TABLET PO (09:04)
[2021-08-02] MEDS: 0.9 % Sodium Chloride Flush 3 ML SYRINGE IVFLUSH (09:05)
--- NOTE | 2021-08-02 09:41 | PM.DS ---
DS: Providers Provider Date of Service: 08/02/21 <JUSTIN Mcdowell - Last Filed: 08/03/21 16:45> Date of admission: 07/28/21 23:33 <JUSTIN Mcdowell - Last Filed: 08/03/21 16:45> Date of discharge: 08/02/21 <JUSTIN Mcdowell - Last Filed: 08/03/21 16:45> Primary care physician: None Physician <JUSTIN Mcdowell - Last Filed: 08/03/21 16:45> Consults: 07/28/21 23:33 Consult to Gastroenterology Routine Consulting Provider: Rupert Ryder Reason for consultation: choledocholithiasis 07/30/21 09:55 Consult to General Surgery Routine Consulting Provider: Francisco Kline Reason for consultation: Choledocholithiasis, assess for CCY Has provider been notified: No <JUSTIN Mcdowell - Last Filed: 08/03/21 16:45> Attending physician on discharge: Linden Kruger <JUSTIN Mcdowell - Last Filed: 08/03/21 16:45> Discharging clinician: Thelma Ibrahim <JUSTIN Mcdowell - Last Filed: 08/03/21 16:45> DS: Diagnosis Discharge Diagnosis (1) Choledocholithiasis: (2) Obstructive jaundice: Status: Acute <JUSTIN Mcdowell - Last Filed: 08/03/21 16:45> DS: Summary Hospital Course Hospital Course: From H&P on day of admission 65-year-old male with a past medical history of hypertension, hyperlipidemia, AFib on Eliquis presented to the hospital with a chief complaint of dark urine for the past few days.? Denies any abdominal pain.? Patient does report having nausea.? Denies any vomiting or diarrhea.? Denies any fever chills cough.?Denies any recent travel or sick contacts.Patient also reports he has been having generalized itching. Denies any recent changes in his medications.? Review of all other systems is negative except mentioned above ER course: Per ER team patient noted a benign examination; urinalysis was abnormal consistent with UTI; also noted to have T bili of 9.1; ALT AST elevated to 200s; lipase negative; patient also had low-grade temperature 99 degrees F; given Zosyn; CT abdomen showed choledocholithiasis.? Discussed with Dr. Ryder from Gastroenterology for possible ERCP and admitted to the hospitalist service for further management choledocholithiasis/obstructive jaundice. Patient was evaluated by GI and underwent ERCP on 07/30 with 2 large cbd stones removed after sphincterotomy. He was seen by general surgery and had lap cholecystectomy on 07/31 for prevention of further common duct stone formation. Blood cultures have remained negative to date. Liver function tests have been trending down. He has remained afebrile and is now stable for discharge home. He is instructed to follow up with Dr. Puentes in one week. UTI. UA was concerning for UTI and he was initially treated with IV antibiotics. He was asymptomatic and urine culture returned negative at which time antibiotics were discontinued AFib. Eliquis was initially placed on hold in preparation for procedures. His home dose of Eliquis was resumed the night prior to discharge. Eliquis should be continued as prescribed. No adjustments were made to any baseline medications. <JUSTIN Mcdowell - Last Filed: 08/03/21 16:45> Time Spent with Patient Time attestation: Total time spent providing and/or coordinating discharge services: <JUSTIN Mcdowell Last Filed: 08/03/21 16:45> Discharge coordination time: Greater than 30 minutes <JUSTIN Mcdowell - Last Filed: 08/03/21 16:45> Quality: Stroke Does the patient have a stroke diagnosis?: No <JUSTIN Mcdowell Last Filed: 08/03/21 16:45> Physical Exam Vital Signs: Vital Signs: Last Vital Signs Temp 97.1 F 08/02/21 07:51 Pulse 50 08/02/21 07:51 Resp 15 08/02/21 07:51 BP 145/67 H 08/02/21 07:51 Pulse Ox 97 08/02/21 07:51 BMI result Body Mass Index 32.5 <JUSTIN Mcdowell Last Filed: 08/03/21 16:45> Const: General: cooperative, healthy appearing, no acute distress, alert, awake and Physically active <JUSTIN Mcdowell Last Filed: 08/03/21 16:45> Nutritional Appearance: average body habitus <JUSTIN Mcdowell - Last Filed: 08/03/21 16:45> Orientation/consciousness: patient oriented x3 <JUSTIN Mcdowell - Last Filed: 08/03/21 16:45> Eyes: Sclerae: sclerae normal <JUSTIN Mcdowell - Last Filed: 08/03/21 16:45> Pupils: Equal, round and reactive pupils present <JUSTIN Mcdowell - Last Filed: 08/03/21 16:45> Resp: Effort & Inspection: normal respiratory effort and able to speak in complete sentences <JUSTIN Mcdowell - Last Filed: 08/03/21 16:45> Cardio: Rate: regular rate <JUSTIN Mcdowell - Last Filed: 08/03/21 16:45> Heart sounds: S1 normal heart sound present and S2 normal heart sound present <JUSTIN Mcdowell - Last Filed: 08/03/21 16:45> GI: Inspection: No distended <JUSTIN Mcdowell - Last Filed: 08/03/21 16:45> Palpation (GI): Soft to palpation and nontender <JUSTIN Mcdowell - Last Filed: 08/03/21 16:45> Neuro: General: patient oriented x3 <JUSTIN Mcdowell - Last Filed: 08/03/21 16:45> Cranial nerves: Yes Equal, round and reactive pupils present <JUSTIN Mcdowell - Last Filed: 08/03/21 16:45> Gait exam (Neuro): Normal gait present <JUSTIN Mcdowell - Last Filed: 08/03/21 16:45> Extrem: Other: no leg edema; ambulating without issue <JUSTIN Mcdowell - Last Filed: 08/03/21 16:45> DS: Data Data Completed and Pending Pending studies at discharge: Pending at discharge 07/31/21 16:25 Surgical [PTH] Routine <JUSTIN Mcdowell - Last Filed: 08/03/21 16:45> Labs on day of discharge: Laboratory Results - last hr 08/02/21 08/02/21 05:19 05:19 WBC 7.4 RBC 3.59 L Hgb 11.6 L Hct 33.4 L MCV 93.0 MCH 32.3 MCHC 34.7 RDW 12.8 Plt Count 160 MPV 10.1 Absolute Nucleated RBC 0.000 Nucleated RBC % (auto) 0.0 Sodium 139 Potassium 4.0 Chloride 103 Carbon Dioxide 27 Anion Gap 13 BUN 9 Creatinine 0.84 Estim Creat Clear Calc 102.1 Estimated GFR > 60 Random Glucose 100 D Calcium 8.8 Total Bilirubin 2.0 H Direct Bilirubin 1.3 H AST 74 H ALT 89 H Alkaline Phosphatase 129 H D Total Protein 5.9 L Albumin 3.4 L Preliminary micro results at discharge 07/28/21 23:16 Blood Culture - Preliminary Blood - Venous No growth after 48 hours. 07/28/21 23:15 Blood Culture - Preliminary Blood - Venous No growth after 48 hours. <JUSTIN Mcdowell - Last Filed: 08/03/21 16:45> Discharge Plan Discharge Patient Disposition: Home, Self-Care <JUSTIN Mcdowell - Last Filed: 08/03/21 16:45> Discharge Diagnosis: Choledocholithiasis, obstructive jaundice <JUSTIN Mcdowell - Last Filed: 08/03/21 16:45> Referrals: Ralph Puentes MD [Physician] - 1 Week Physician,None [Primary Care Provider] - 1 Week <JUSTIN Mcdowell - Last Filed: 08/03/21 16:45> Discharge Medications: New oxycodone-acetaminophen [Endocet] 5-325 mg tablet 1 tab PO Q6H PRN (Reason: pain (scale score 7-10)) Qty: 14 0RF Continued atorvastatin 80 mg tablet 1 tab PO DAILY 0RF aspirin 81 mg tablet,delayed release (DR/EC) 1 tab PO DAILY 0RF amlodipine 10 mg tablet 1 tab PO DAILY 0RF propranolol 80 mg capsule,extended release 24 hr 1 cap PO BEDTIME 0RF Eliquis 5 mg tablet 1 tab PO BID 0RF <JUSTIN Mcdowell - Last Filed: 08/03/21 16:45> Discharge Orders: Discharge Order (Routine); Ordered 08/02/21 Ordered By: Thelma Ibrahim <JUSTIN Mcdowell Last Filed: 08/03/21 16:45> Diet: low fat, low cholesterol <JUSTIN Mcdowell Last Filed: 08/03/21 16:45> Activity on Discharge: No heavy lifting <JUSTIN Mcdwoell Last Filed: 08/03/21 16:45> Stand Alone Forms: Patient Portal Discharge page <JUSTIN Mcdowell Last Filed: 08/03/21 16:45> Activity Restrictions/Additional Instructions: If the incision area is tender, you may apply an ice pack for short intervals (No more than 20 minutes on, followed by at least 20 minutes off). Do not apply heat. Do not use creams, lotions, or topical antibiotics unless instructed to do so by your surgeon. These can cause infection or allergic reaction. Ok to shower. Remove clear dressings 3 days following your procedure. You have steri strips (small white cloth strips) covering your incision- these will fall off ~1 week. No heavy lifting (>10lbs)! Follow up in office with Dr. Puentes in 1 week. ([phone]) Call Your Doctor If: -Your temperature exceeds 101.5? F -You experience excessive pain or swelling -You have an unexpected reaction to medication -You have excessive bleeding -You experience continued vomiting/nausea -Your incision begins to separate -Your incision shows signs of infection such as increased redness, swelling, excessive pain, drainage (light blood or clear fluid is normal) or heat <JUSTIN Mcdowell Last Filed: 08/03/21 16:45> Care Plan Goals: Return to normal activity and diet <JUSTIN Mcdowell Last Filed: 08/03/21 16:45> Health Concerns: Common bile duct gallstone, jaundice <JUSTIN Mcdowell Last Filed: 08/03/21 16:45> Plan of Treatment: ERCP, laparoscopic cholecystectomy <JUSTIN Mcdowell Last Filed: 08/03/21 16:45> Assessment: Choledocholithiasis, obstructive jaundice <JUSTIN Mcdowell Last Filed: 08/03/21 16:45> Discharge Date/Time: 08/02/21 12:00 <JUSTIN Mcdowell - Last Filed: 08/03/21 16:45>
--- NOTE | 2021-08-02 09:55 | MHC.CM.PN ---
PATIENT IS DC HOME - SELF CARE IMM 08/01 IN CHART RN AWARE OF PLAN
[2021-08-02] MEDS: oxyCODONE HCl Immed Release 5 MG TABLET PO (10:55)
== END 2021-08-02 12:00 | disposition home or self-care (01) | DRG 418 ==
LOC: HO.ED 23:11 → HO.EDOVER 23:38 → HO.S3 07-29 12:43
PROVIDERS: Internal Medicine; Internal Medicine Gastroenterology; Surgery; Admitting Provider Hospitalist; Emergency Provider Student in an Organized Health Care Education/Training Program; Visit Provider Physician Assistant Medical
PROC: 0FC98ZZ Extirpation of Matter from Common Bile Duct, Via Natural or Artificial Opening Endoscopic (ICD-10-PCS; CPT 43260; principal; 2021-07-30 13:30)
PROC: 0FT44ZZ Resection of Gallbladder, Percutaneous Endoscopic Approach (ICD-10-PCS; CPT 47562; principal; 2021-07-31 14:40)
DX: K80.51 Calculus of bile duct without cholangitis or cholecystitis with obstruction (principal); N39.0 Urinary tract infection, site not specified; G43.909 Migraine, unspecified, not intractable, without status migrainosus; I10 Essential (primary) hypertension; I48.91 Unspecified atrial fibrillation; Z20.822 Contact with and (suspected) exposure to COVID-19; Z79.01 Long term (current) use of anticoagulants; Z79.82 Long term (current) use of aspirin; Z79.899 Other long term (current) drug therapy
CPT/HCPCS: 36415; 74177; 80048; 80053; 80076; 81001; 83605; 83690; 85025; 85027; 85610; 87040; 87086; 87635; 88304; 93005; 96361; 96365; 99024; 99285; J0131; J1100; J1170; J1200; J1610; J2250; J2405; J2543; J3010; J3430; Q0163; Q9967

== ENCOUNTER → 2021-08-08 09:50 | Outpatient (BNVA) | payer MEDICARE, BC, SELFPAY | PROVIDERS: Visit Provider Surgery | DX: Z48.815 Encounter for surgical aftercare following surgery on the digestive system (principal); Z90.49 Acquired absence of other specified parts of digestive tract | CPT/HCPCS: 99212 ==

== ENCOUNTER 2025-04-25 15:08 | Outpatient (AMB) | payer MEDICARE, BC, SELFPAY ==
--- NOTE | 2025-04-25 15:39 | A.OFFVIS_ITS ---
Intake Visit Reasons: 3m migraine Allergies No Known Allergies Allergy (Verified 08/08/21 10:17) HPI Comments Details: 69-year-old male presenting for follow-up on headaches and to discuss chronic fatigue and poor sleep. His headaches are reportedly improved since restarting propranolol 80 mg long-acting once daily. The patient reports a long-standing history of chronic fatigue since his early 20s, which he initially associated with his blood pressure medications. He states he is always sleepy during the day and feels as though he has not slept at all even after 8 hours of sleep, which is interrupted by 2-3 bathroom breaks per night. He has a history of unspecified heart issues and has been managed by cardiology, where trials of different medications did not resolve his fatigue. 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 The patient also complains of awful sleep and experiencing bad dreams. He has had two prior sleep studies; one in-lab study and a more recent home study from approximately two years ago were both reportedly normal. [facility] Medical History (Updated 04/25/25 @ 15:41 by Gideon Carpenter MD) Migraine Cerebral atrophy Tension headache Obesity MCI (mild cognitive impairment) Jaundice Rotator cuff syndrome of both shoulders Hyperlipidemia Atrial fibrillation Hypertension UTI (urinary tract infection) Transaminitis Sepsis Choledocholithiasis Surgical History (Updated 08/08/21 @ 10:09 by MARY LOU Quarles) History of laparoscopic cholecystectomy (07/31/21) Status post total knee replacement, right Social History Household Members: Significant Other Housing: House Do you presently have visiting nurse or other home services: No Alcohol intake: never Patient Tobacco Use Status: Never used Tobacco service: Yes Current occupational status: retired Review of Systems Narrative - Constitutional: Reports chronic fatigue and daytime somnolence. - Respiratory: Denies breathing issues. - Neurological: Reports improvement in headaches. - Psychiatric: Reports mood is okay. Reports sleep is awful with associated bad dreams. - Genitourinary: Reports nocturia (2-3 times per night). Physical Exam Neuro Other: Mental Status: Alert and oriented to person, place, and time. Normal attention. Normal spontaneous speech, fluency, and comprehension. No obvious issues with mood and memory. Affect is appropriate. Cranial Nerves: CN II: Visual espinosa full to confrontation, visual acuity intact. CN III, IV, : Pupils equal, round, reactive to light and accommodation. Extraocular movements are normal. CN V: Facial sensation is normal. CN VII: Facial movements symmetrical. CN VIII: Hearing intact to bedside conversation is normal. CN IX, X: Palate elevates symmetrically. CN XI: Shoulder shrug and head turn symmetrical. CN XII: Tongue midline without atrophy or fasciculations. Motor: Bulk and tone normal in all extremities. No significant muscle weakness in arms and legs. No drift. Reflexes: Deep tendon reflexes 2+ and symmetric. Plantar response down-going bilaterally. Extrapyramidal: Full facial expressions and blinking. No rigidity. Movements are appropriate with no tremor or abnormality. Speech: Normal; no dysarthria or tremor. Assessment & Plan Assessment & Plan (1) Migraine: Comment: Meds tried for migraine: Propranolol, Sumatriptan (CAD), topiramate, Nurtec CT brain WO at in Feb 2017: mild bifrontal and cerebellar atrophy MRI of brain WO at in 2012: [place] EEG at office in 2012: WNL B12 in 2012, 342. Code(s): G43.909 - Migraine, unspecified, not intractable, without status migrainosus Category: Medical Qualifiers: Migraine type: migraine (< 15 days per month) without aura Status migrainosus presence: without status migrainosus Intractability: not intractable Qualified Code(s): G43.009 - Migraine without aura, not intractable, without status migrainosus Plan Impression: a: Chronic migraine better with propranalol b: Chronic fatigue syndrome with features suggestive of obstructive sleep apnea Rec: a: Propranalol ER 80mg one a day b: Polysomnogram Orders: Orders RT home sleep study Today G47.33 - Obstructive sleep apnea (adult) (pediatric) Medications: Changed From propranolol ER 1 cap PO BEDTIME To propranolol ER 80 mg PO BEDTIME 90 caps 1RF Coding Level of Care Code Est Pt Level 4 (95861) Diagnoses Migraine without aura and without status migrainosus, not intractable G43.009 Migraine type: migraine (< 15 days per month) without aura Status migrainosus presence: without status migrainosus Intractability: not intractable
--- OUTSIDE RECORDS SUMMARY | 2025-04-26 13:08 | XMS_ITS | Clinical Summary ---
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 Active traMADoL (ULTRAM) 50 mg tablet Take 1 Tablet by mouth as needed. Active MULTIVITAMIN ORAL 1 po Qd Active loratadine (CLARITIN) 10 mg tablet Take 1 tablet (10 mg total) by mouth if needed for allergies. Active nitroglycerin (NITROSTAT) 0.[address] 1 Tab under the tongue every 5 minutes as needed (chest pain). Active nystatin (MYCOSTATIN) 100,000 unit/gram powder Apply twice a day to affected area. Active amLODIPine (NORVASC) 2.5 mg tablet TAKE 1 TABLET BY MOUTH DAILY 90 tablet 3 5 Active apixaban (Eliquis) 5 mg tablet TAKE 1 TABLET BY MOUTH TWICE DAILY 180 tablet 3 5 Active topiramate (TOPAMAX) 50 mg tablet Take 1 tablet (50 mg total) by mouth 1 (one) time each day. Active rimegepant (Nurtec) 75 mg dispersible tablet Dissolve 1 tablet (75 mg total) on top of the tongue 1 (one) time each day if needed for migraine. Active meclizine (ANTIVERT) 25 mg tabletIndication s:Dizziness Chew 1 tablet (25 mg total) 1 (one) time each day if needed for dizziness. 30 tablet 3 5 Active atorvastatin (LIPITOR) 80 mg tablet Take 1 tablet (80 mg total) by mouth 1 (one) time each day. 90 tablet 3 5 Active propranolol LA (Inderal LA) 80 mg 24 hr capsule Take 1 capsule (80 mg total) by mouth 1 (one) time each day. Do not crush, chew, or split. 90 each 3 5 01/14/20 26 Active lisinopriL (PRINIVIL,ZESTRI L) 5 mg tablet Take 1 tablet (5 mg total) by mouth 1 (one) time each day. 90 tablet 2 5 Active aspirin 81 mg EC tablet TAKE 1 TABLET BY MOUTH DAILY 90 tablet 3 5 Active ciprofloxacin (CIPRO) 500 mg tabletIndication s:Rectal cyst,Pilonidal cyst Take 1 tablet (500 mg total) by mouth 2 (two) times a day for 7 days. 14 each 5 04/10/20 25 Active Problems Problem Noted Date Diagnosed Date Bradycardia 07/06/2024 Assessment & Plan (03/16/2025 11:35 AM EDT): Orders: CBC and differential; Future Thyroid stimulating hormone with reflex to free t4 and free t3; Future Assessment & Plan (10/13/2024 12:05 PM EDT): He continues to be bradycardic with heart rates in the low 50s during our exam today despite having his propranolol dose decreased to 40 mg. Patient does endorse episodes of dizziness and lightheadedness on both the 80 mg as well as the 40 mg. Subsequently, we will update a Holter monitor to further evaluate for over overall ventricular heart rate as well as for any pauses or arrhythmias. Orders: ECG 12 lead Cardiac holter monitor (<= 48 hours); Future Assessment & Plan (07/06/2024 1:57 PM EST): Patient has a history of bradycardia. Monitor performed outlined above revealed an average ventricular heart rate of 54 bpm. He is sinus bradycardic with a heart rate in the 50s during our office visit today. We again discussed the potential his ongoing bradycardia in the setting of propranolol use could be contributing to his ongoing fatigue. I did recommend he reach out to his former neurologist to further evaluate whether or not there were any other options to explore to treat his migraines that did not involve beta-jose therapy. Prediabetes 05/26/2022 Obesity (BMI 30.0-34.9) 02/06/2022 Chronic low back pain with left-sided sciatica 0 12/02/2018 Coronary artery disease invo lving [place] coronary artery of [place] heart without angina pectoris 07/31/2017 Overview (06/06/2024): Last Assessment & Plan: The patient does not have any significant ischemia on his most recent stress test. He does feel that his fatigue improved with reduction of his amlodipine though he now has dizziness which she recalls from being on his lisinopril in the past. We will reduce his lisinopril to 5 mg daily and follow his symptoms along. If we need to, we can further reduce his lisinopril to 2.5 mg daily. I offered to eliminate his amlodipine but this serves as an antianginal for him as well as his propranolol. He is not a candidate for nitrate therapy as he has migraines. Therefore, continue his current treatment plan with beta-jose, calcium channel jose, aspirin and statin. He will keep me posted on how he is feeling. Assessment & Plan (03/16/2025 11:35 AM EDT): Assessment & Plan (07/06/2024 1:57 PM EST): He denies any anginal symptoms. He does endorse extreme fatigue prior to his stenting which she is not feeling at this time. He continues on guideline directed medical therapy of aspirin and statin therapy. Last fasting lipid profile revealed an LDL of 60. This is at goal less than 70 in the setting of coronary artery disease. Instructed to call 911 or go to the emergency room should the patient begin to experience chest pain or pressure lasting greater than 10 minutes does not resolve with rest. Generalized headaches 07/01/2017 Assessment & Plan (10/13/2024 12:05 PM EDT): Patient reached out to his neurologist to try other treatment modalities for his significant migraines which have affected him since childhood. Unfortunately, with a reduction in his propranolol from 80 to 40 mg and the addition of Topamax he has been significantly affected by his migraines and is upset with his current quality of life. In light of the fact that his heart rates remain unchanged despite the lower beta-jose dose, it would be acceptable for the patient to return to his effective dose of propranolol for his migraines and for us to update a monitor to further evaluate overall rate control. I will reach out to his neurologist Dr. Carpenter at [facility] for recommendations on the appropriate way to discontinue Topamax. Vertigo 07/01/2017 Paroxysmal atrial fibrillation (CMS/HCC V24, CMS /HCC V28) 04/04/2015 Overview (06/06/2024): Anticoagulated with apixaban Last Assessment & Plan: Patient does not have any clinical recurrence of his atrial fibrillation. He has not had any bleeding issues. Continue rate control strategy with propranolol and anticoagulation with apixaban. Assessment & Plan (03/16/2025 11:35 AM EDT): Assessment & Plan (10/13/2024 12:05 PM EDT): He denies perception of recurrence of arrhythmia. Monitor ordered as outlined above to further evaluate for arrhythmia burden and ventricular rate control as as well as for pauses or prolonged episodes of bradycardia. He will continue to be anticoagulated on full dose Eliquis as his weight is greater than 60 kg and his age is less than 80 years. Educated on risks and benefits of continuing with anticoagulation including increased risk for hemorrhage and decreased risk for stroke. Encouraged to seek emergent medical attention should the patient sustain a fall involving a head strike. The patient understands these risks and agrees to continue. Assessment & Plan (07/06/2024 1:57 PM EST): He denies perception of recurrence of arrhythmia. He continues to be anticoagulated on full dose Eliquis as his age is less than 80 years and his weight is greater than 60 kg. His [id number] score is 3 for age, hypertension and coronary disease. Educated on risks and benefits of continuing with anticoagulation including increased risk for hemorrhage and decreased risk for stroke. Encouraged to seek emergent medical attention should the patient sustain a fall involving a head strike. The patient understands these risks and agrees to continue. Depressive disorder 03/23/2013 Mixed hyperlipidemia 09/07/2012 Overview (06/06/2024): Last Assessment & Plan: Patient's LDL is well controlled on current dose statin. Continue the same. Fabricio torresuris 05/07/2012 Adjustment disorder with depressed mood 11/07/19 11 Essential hypertension 07/09/2005 Overview (06/06/2024): Last Assessment & Plan: BP well controlled. He has periods of dizziness. Will reduce his lisinopril to 5mg/d and further to 2.5mg/d if needed. Given no DM, no absolute indication for JOLENE-I aside from BP management. He will keep me updated. Assessment & Plan (10/13/2024 12:05 PM EDT): Notable during today's exam with a reading of 122/80. He will continue on his current dose of lisinopril 5 mg and amlodipine 2.5. Educated on the importance of diet lifestyle to help further assist in reducing blood pressure. The patient was encouraged to follow low-salt low-fat diet, make purposeful strides towards weight loss, and engage in routine aerobic exercise as tolerated. Assessment & Plan (07/06/2024 1:57 PM EST): Well-controlled during today's exam with a reading of 120/68. I have made no changes to his antihypertensive medications. Educated on the importance of diet lifestyle to help further assist in reducing blood pressure. The patient was encouraged to follow low-salt low-fat diet, make purposeful strides towards weight loss, and engage in routine aerobic exercise as tolerated. Encounters Date Type Department Care Team Description 04/07/2025 9:00 AM EDT Consult General Surgery - [address] [place] [phone] Jass Yanez MD Epidermal inclusion cyst (Primary Dx) 04/04/2025 Results Follow-Up [facility] - [facility] [address] [facility] [address] [place] [address] Grecia Cote NP 04/03/2025 2:00 PM EDT Office Visit [address] [phone] Jemma Starkey NP Rectal cyst (Primary Dx); Pilonidal cyst 03/16/2025 9:50 AM EDT Office Visit [facility] - [facility] [address] [facility] [address] [place] [address] Rakan Hernandez MD Coronary artery disease involving [place] coronary artery of [place] heart without angina pectoris (Primary Dx); Paroxysmal atrial fibrillation (CMS/HCC V24, CMS/HCC V28); Bradycardia; Chronic fatigue from Last 3 Months Immunizations Immunization Administration Dates Next Due H1N1 Inj Preservative Free 05/19/2009 Influenza Quadravalent, MDCK , 0.5ml, with preservative (Flucelvax) 6mo and older 02/12/2017 Influenza trivalent, 0.5mL ( Fluad) 65yo and older 04/18/2022,01/27/2021 Influenza trivalent, 0.5mL, preservative free (Fluarix; FluLaval; Fluzone) ages 6mo and older (Afluria) 3 years and older 01/23/2020,02/22/2018,04/24/2016,2014,07/28/2011,03/22/2008,04/21/2007 Influenza trivalent, with preservative (Fluzone; Afluria) 6mo and older 03/07/2014,04/11/2013,03/09/2012,2009,02/25/2009,05/21/2006,04/15/2005 Pfizer (ages 12 & older) Biv alent, COVID-19 02/25/2022 Pneumococcal conjugate 13 va lent (Prevnar 13, PCV13) 2mo and older 01/27/2021 Pneumococcal conjugate 20 va lent (Prevnar 20, PCV 20) 2mo and older 06/26/2022 Tdap Tetanus diptheria acell ular pertussis (Boostrix; Adacel) 7yo and older 06/26/2022,03/06/2010 Zoster recombinant (Shingrix ) 19yo and older 01/27/2021 Surgical History Surgery Date Site/Laterality Comments TOTAL KNEE ARTHROPLASTY 2004 PROCEDURE: HISTORICAL TOTAL KNEE REPLACE; COMMENT: right OTHER SURGICAL HISTORY mar 2009 PROCEDURE: ARTHROSCOPY, KNEE, SURGICAL, IMPLAN; COMMENT: left knee OTHER SURGICAL HISTORY 1990 PROCEDURE: ---- OTHER ----; COMMENT: brachial cleft cyst COLONOSCOPY 10/14/05 PROCEDURE: HISTORICAL COLONOSCOPY; COMMENT: normal COLONOSCOPY 08/01/16 PROCEDURE: COLOREC CANC SCRN,COLONOSCPY HI RISK; COMMENT: hemorrhoids; repeat in 5 yrs SHOULDER SURGERY Bilateral PROCEDURE: HISTORICAL SHOULDER SURGERY; COMMENT: left 02/2016, right 03/2017 Medical History Medical History Date Comments Essential hypertension, benign 07/09/2005 D X:Essential hypertension, benign External hemorrhoids without mention of complication 07/09/2005 DX:External hemorrhoids with out mention of complication 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 07/09/2005 DX:Tube rculin test reaction Arthritis DX:Arthritis; CO MMENT: bilateral knees Tinea cruris 05/07/2012 DX:Tinea cruris Striae atrophic 05/07/2012 DX:Striae atroph ic Family History Medical History Relation Name Comments Other: PARKINSON'S DISEASE Father Other: tuberculosis Mother Relation Name Status Comments Father Mother Social History Tobacco Use Types Packs/Day Years Used Date Smoking Tobacco: Never Smokeless Tobacco: Never Tobacco Cessation:Counseling Given: Not Answered Alcohol Use Standard Drinks/Week Comments No 0 (1 standard drink = 0.6 oz pur e alcohol) Sex and Gender Information Value Date Recorded Sex Assigned at Not on file Legal Sex Male 1:21 AM EST Gender Identity Not on file Sexual Orientation Not on file Obstetrics History Last Filed Vital Signs Vital Sign Reading Time Taken Comments Blood Pressure 115/74 04/07/2025 8:59 AM EDT Pulse 62 04/07/2025 8:59 AM EDT Temperature 36.4 C (97.5 F) 04/03/2025 1:43 PM EDT Respiratory Rate 15 04/03/2025 1:43 PM EDT Oxygen Saturation 97% 04/03/2025 1:43 PM EDT Inhaled Oxygen Concentration - - Weight 95.4 kg (210 lb 5.1 oz) 04/07/2025 8:59 A M EDT Height 175.3 cm (5' 9 ) 04/07/2025 8:59 AM EDT Body Mass Index 31.06 04/07/2025 8:59 AM EDT Plan of Treatment Upcoming Encounters Date Type Department Care Team (Late st Contact Info) Description 07/10/2025 9:00 AM EST Office Visit General Surgery - [place] [address] [place] [phone] Jass Yanez MD [address] [place] [phone] 09/01/2025 4:00 PM EDT Office Visit Adult Medicine [facility] [address] [place] [phone] Ariel Angela MD [address] [place] [address] Health Maintenance Due Date Last Done Comments Colorectal Cancer Screening: Colonoscopy 08/01/2021 08/01/2016 Falls Risk Assessment 05/17/2022 Medicare Annual Wellness Visit 05/17/2022 Social Influencers of Health Screening 05/17/2022 Depression Screening 06/08/2024 Hypertension/CHF/CAD Annual BMP Blood Test 07/04/2025 07/04/2024, 05/26/2022 COVID-19 Vaccine (2024- season) 2025 03/28/2025, 03/02/2024, 04/09/2023, Additional history exists Cholesterol Screening (Lipid Panel) 07/04/2029 07/04/2024, 07/03/2023 RSV Immunization Adult Patients (1 - 1-dose 75+ series) 12/02/2030 DTaP,Tdap,and Td Vaccines (3 - Td or Tdap) 06/26/2032 06/26/2022, 03/06/2010 Hepatitis C Screening Completed 10/14/2013 Pneumococcal Vaccine: 50+ Years Completed 06/26/2022, 01/27/2021 Zoster Vaccines Completed 03/06/2023, 01/27/2021 Influenza Vaccine Completed 03/28/2025, , 03/06/2023, Additional history exists HIB Vaccines Aged Out No longer eligi ble based on patient's age to complete this topic HPV Vaccines Aged Out No longer eligi ble based on patient's age to complete this topic Hepatitis A Vaccines Aged Out No long er eligible based on patient's age to complete this topic Hepatitis B Vaccines Aged Out No long er eligible based on patient's age to complete this topic IPV Vaccines Aged Out No longer eligi ble based on patient's age to complete this topic MMR Vaccines Aged Out No longer eligi ble based on patient's age to complete this topic Meningococcal ACWY Vaccine Aged Out N o longer eligible based on patient's age to complete this topic Meningococcal B Vaccine Aged Out No l onger eligible based on patient's age to complete this topic RSV Immunization Patients Under 20 months Aged Out No longer eligible based on patient's age to complete this topic Varicella Vaccines Aged Out No longer eligible based on patient's age to complete this topic Procedures Procedure Name Priority Date/Time Associated Diagnosis Comments CBC WITH AUTO DIFFERENTIAL Routine 03/16/2025 10:56 AM EDT Bradycardia Chronic fatigue CBC AND DIFFERENTIAL Routine 03/16/2025 10:56 AM EDT Bradycardia Chronic fatigue THYROID STIMULATING HORMONE WITH REFLEX TO FREE T4 AND FREE T3 Routine 03/16/2025 10:56 AM EDT Bradycardia Chronic fatigue COMPREHENSIVE METABOLIC PANEL Routine 07/04/2024 8:15 AM EST Essential hypertension LIPID PANEL WITH REFLEX TO DIRECT LDL Routine 07/04/2024 8:15 AM EST Mixed hyperlipidemia COLONOSCOPY Routine 08/01/2016 HEPATITIS C SCREENING Routine 10/14/2013 from Last 3 Months or Most Recently Relevant to Health Maintenance Results * Thyroid stimulating hormone with reflex to free t4 and free t3 (03/16/2025 10:56 AM EDT) [facility] TSH 1.31 0.40 - 4.00 mcIU/mL LAB CHEMISTRY METHOD 03/16/2025 2:31 PM EDT [facility] Blood Venous blood specimen / Unknown Venipuncture / Unknown 03/16/2025 10:56 AM EDT 03/16/2025 10:56 AM EDT Rakan Hernandez MD LAB BLOOD ORDERABLES Yarely tijerina Result [facility] [address] [place] [address], * (ABNORMAL) CBC auto differential (03/16/2025 10:56 AM EDT) [facility] WBC 8.0 4.8 - 10.8 K/mcL LAB HEMETOLOGY METHOD 03/16/2025 12:23 PM EDT [facility] RBC 4.50 4.50 - 5.50 M/mcL LAB HEMETOLOGY METHOD 03/16/2025 12:23 PM [facility] Hemoglobin 14.7 13.5 - 17.5 g/dL LAB HEMETOLOGY METHOD 03/16/2025 12:23 PM [facility] Hematocrit 41.9(L) 42.0 - 54.0 % LAB HEMETOLOGY METHOD 03/16/2025 12:23 PM EDT [facility] MCV 92.3 79.0 - 98.0 FL LAB HEMETOLOGY METHOD 03/16/2025 12:23 PM [facility] MCH 32.4(H) 27.0 - 32.0 pcg LAB HEMETOLOGY METHOD 03/16/2025 12:23 PM [facility] MCHC 35.1 32.0 - 37.0 g/dL LAB HEMETOLOGY METHOD 03/16/2025 12:23 PM [facility] RDW 14.2 11.0 - 15.0 % LAB HEMETOLOGY METHOD 03/16/2025 12:23 PM [facility] Platelets 229 130 - 400 K/mcL LAB HEMETOLOGY METHOD 03/16/2025 12:23 PM [facility] MPV 10.2 7.0 - 11.0 FL LAB HEMETOLOGY METHOD 03/16/2025 12:23 PM [facility] NRBC 0.0 <1.0 % LAB HEMETOLOGY METHOD 03/16/2025 12:23 PM [facility] NRBC Absolute 0.00 <0.10 K/mcL LAB HEMETOLOGY METHOD 03/16/2025 12:23 PM [facility] Neutrophils Relative 63.9 % LAB HEMETOLOGY METHOD 03/16/2025 12:23 PM [facility] Lymphocytes Relative 24.9 % LAB HEMETOLOGY METHOD 03/16/2025 12:23 PM [facility] Monocytes Relative 7.8 % LAB HEMETOLOGY METHOD 03/16/2025 12:23 PM [facility] Eosinophils Relative 2.5 % LAB HEMETOLOGY METHOD 03/16/2025 12:23 PM [facility] Basophils Relative 0.5 % LAB HEMETOLOGY METHOD 03/16/2025 12:23 PM [facility] Immature Granulocytes Relative 0.4 % LAB HEMETOLOGY METHOD 03/16/2025 12:23 PM [facility] Neutrophils Absolute 5.09 1.50 - 7.00 K/mcL LAB HEMETOLOGY METHOD 03/16/2025 12:23 PM [facility] Lymphocytes Absolute 1.98 1.00 - 5.00 K/mcL LAB HEMETOLOGY METHOD 03/16/2025 12:23 PM EDT [facility] Monocytes Absolute 0.62 0.20 - 1.00 K/mcL LAB HEMETOLOGY METHOD 03/16/2025 12:23 PM EDT [facility] Eosinophils Absolute 0.20 0.00 - 0.50 K/mcL LAB HEMETOLOGY METHOD 03/16/2025 12:23 PM EDT [facility] Basophils Absolute 0.04 0.00 - 0.20 K/mcL LAB HEMETOLOGY METHOD 03/16/2025 12:23 PM EDT [facility] Immature Granulocytes Absolute 0.03 0.00 - 0.03 K/mcL LAB HEMETOLOGY METHOD 03/16/2025 12:23 PM [facility] Blood Venous blood specimen / Unknown Venipuncture / Unknown 03/16/2025 10:56 AM EDT 03/16/2025 10:56 AM EDT us Rakan Hernandez MD LAB BLOOD ORDERABLES Yarely tijerina Result [facility] [address] [place] [address], * (ABNORMAL) Lipid panel with reflex to direct LDL (07/04/2024 8:15 AM EST) Cholesterol 139 0 - 200 mg/dL LAB CHEMISTRY METHOD 07/04/2024 11:09 AM [facility] Triglycerides 181(H) 0 - 150 mg/dL LAB CHEMISTRY METHOD 07/04/2024 11:09 AM EST [facility] HDL 43 >=40 mg/dL LAB CHEMISTRY METHOD 07/04/2024 11:09 AM EST [facility] LDL Calculated 60 0 - 100 mg/dL LAB CHEMISTRY METHOD 07/04/2024 11:09 AM [facility] VLDL Cholesterol Mxa 36.2 mg/dL LAB CHEMISTRY METHOD 07/04/2024 11:09 AM [facility] Non HDL Chol. (LDL+VLDL) 96 <145 mg/dL LAB CHEMISTRY METHOD 07/04/2024 11:09 AM [facility] Chol/HDL Ratio 3.2 0.0 - 4.4 LAB CHEMISTRY METHOD 07/04/2024 11:09 AM [facility] Blood Venous blood specimen / Unknown Venipuncture / Unknown 07/04/2024 8:15 AM EST 07/04/2024 8:15 AM EST us Rakan Hernandez MD LAB BLOOD ORDERABLES Yarely tijerina Result [facility] [address] [place] [address], [place] [phone] * (ABNORMAL) Comprehensive metabolic panel (07/04/2024 8:15 AM EST) Sodium 136 133 - 145 mmol/L LAB CHEMISTRY METHOD 07/04/2024 11:09 AM [facility] Potassium 4.2 3.5 - 5.5 mmol/L LAB CHEMISTRY METHOD 07/04/2024 11:09 AM [facility] Chloride 104 96 - 110 mmol/L LAB CHEMISTRY METHOD 07/04/2024 11:09 AM [facility] CO2 28 21 - 32 mmol/L LAB CHEMISTRY METHOD 07/04/2024 11:09 AM [facility] Anion Gap 4 3 - 11 LAB CHEMISTRY METHOD 07/04/2024 11:09 AM [facility] Glucose 169(H) 70 - 100 mg/dL LAB CHEMISTRY METHOD 07/04/2024 11:09 AM [facility] BUN 13 5 - 25 mg/dL LAB CHEMISTRY METHOD 07/04/2024 11:09 AM [facility] Creatinine 0.83 0.70 - 1.30 mg/dL LAB CHEMISTRY METHOD 07/04/2024 11:09 AM [facility] eGFR 95 >=60 mL/min/1. 73m2 LAB CHEMISTRY METHOD 07/04/2024 11:09 AM [facility] Comment:Calculation based on the Chronic Kidney Disease Epidemiology Collaboration (CKD-EPI) equation refit without adjustment for race. BUN/Creatinine Ratio 15.7 LAB CHEMISTRY METHOD 07/04/2024 11:09 AM [facility] Calcium 9.6 8.5 - 10.5 mg/dL LAB CHEMISTRY METHOD 07/04/2024 11:09 AM [facility] AST (SGOT) 32 10 - 42 unit/L LAB CHEMISTRY METHOD 07/04/2024 11:09 AM [facility] ALT (SGPT) 37 10 - 60 unit/L LAB CHEMISTRY METHOD 07/04/2024 11:09 AM [facility] Alkaline Phosphatase 74 42 - 121 unit/L LAB CHEMISTRY METHOD 07/04/2024 11:09 AM [facility] Total Protein 6.9 6.0 - 8.0 g/dL LAB CHEMISTRY METHOD 07/04/2024 11:09 AM [facility] Albumin 4.1 3.2 - 5.0 g/dL LAB CHEMISTRY METHOD 07/04/2024 11:09 AM [facility] Total Bilirubin 1.0 0.0 - 1.4 mg/dL LAB CHEMISTRY METHOD 07/04/2024 11:09 AM [facility] Blood Venous blood specimen / Unknown Venipuncture / Unknown 07/04/2024 8:15 AM EST 07/04/2024 8:15 AM EST us Rakan Hernandez MD LAB BLOOD ORDERABLES Yarely tijerina Result [facility] [address] [place] [address], * Hm Colonoscopy (08/01/2016) Colonoscopy No Interpretation , Abstracted Anatomical Region Laterality Modality Other Historical Provider HEALTH MAINTENANCE Final Result * Hepatitis C Screening (10/14/2013) Hepatitis C Screening Abstracted us Historical Provider HEALTH MAINTENANCE Final Result from Last 3 Months or Most Recently Relevant to Health Maintenance Insurance MEDICARE [facility] Member Subscriber Plan / Payer (Ef fective 2024-Present) Name:DULCE MARIA BELL Relation to Subscriber:Self Name:Dulce Maria Bell Payer ID:[id number] Group ID:[id number] Type:Not on file Address: [facility] [id number] [place] [address] Care 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
== END 2025-04-25 15:54 | disposition home or self-care (01) ==
LOC: HO.HSM 15:08
PROVIDERS: PCP Internal Medicine; Visit Provider Psychiatry & Neurology Neurology
DX: G43.009 Migraine without aura, not intractable, without status migrainosus (principal)
CPT/HCPCS: 99214

== ENCOUNTER → 2025-04-25 15:08 | Outpatient (BNVA) | payer MEDICARE, BC, SELFPAY | PROVIDERS: PCP Internal Medicine; Visit Provider Psychiatry & Neurology Neurology | DX: G43.009 Migraine without aura, not intractable, without status migrainosus (principal); G93.32 Myalgic encephalomyelitis/chronic fatigue syndrome; R35.1 Nocturia | CPT/HCPCS: 99212 ==